=== PATIENT | female | born 1970 | race African-American/Black ===

== ENCOUNTER → 2016-12-09 | Outpatient (CLI) | payer MEDICARE, BC, MEDICAID ==
[2016-12-09 12:35] LABS: APPEARANCE,URINE CLEAR; BILIRUBIN,URINE NEGATIVE (NEGATIVE); GLUCOSE, URINE NEGATIVE (NEGATIVE); KETONES,URINE NEGATIVE (NEGATIVE); LEUKOCYTE ESTERASE,URINE NEGATIVE (NEGATIVE); NITRITE,URINE NEGATIVE (NEGATIVE); PROTEIN,URINE NEGATIVE (NEGATIVE); URINE SPECIFIC GRAVITY 1.027; UROBILINOGEN,URINE NEGATIVE mg/dL (<2.0)
[2016-12-09 12:51] LABS: HEMATOCRIT 35.5 % (36.0-47.0); HEMOGLOBIN 11.3 g/dL (12.0-15.5); HGB HCT DIFFERENCE -1.6; MEAN CORPUSCULAR HEMOGLOBIN 28.8 pg (27.0-33.4); MEAN CORPUSCULAR HGB CONC 31.9 g/dL (32.0-36.0); MEAN CORPUSCULAR VOLUME 90 fl (80-97); RED BLOOD COUNT 3.94 10^6/uL (3.72-5.28); RED CELL DISTRIBUTION WIDTH 13.6 % (11.5-14.0); WHITE BLOOD COUNT 3.8 10^3/uL (4.0-10.5)
[2016-12-09 13:25] LABS: AMYLASE 45 U/L (30-110); ANION GAP 11 (5-19); BLOOD UREA NITROGEN 27 mg/dL (7-20); CALCIUM 9.4 mg/dL (8.4-10.2); CARBON DIOXIDE 27 mmol/L (22-30); CHLORIDE 104 mmol/L (98-107); CREATININE RESULT 1.01 mg/dL (0.52-1.25); GLUCOSE 94 mg/dL (75-110); LIPASE 65.9 U/L (23-300); POTASSIUM 4.7 mmol/L (3.6-5.0)
[2016-12-10 11:40] LABS: CREATININE URINE 127.2 mg/dL (Not Estab.)
[2016-12-11 07:15] LABS: TACROLIMUS (FK506) 7.6 ng/mL (2.0-20.0)
[2016-12-12 10:17] LABS: CMV DNA PCR QUANT Positive < 200 IU/mL (Negative)
[2016-12-12 10:18] LABS: BK PCR QNT Negative copies/mL (Negative)
== END ==
LOC: OD 10:55
PROVIDERS: ATTEND Internal Medicine
DX: Z94.0 Kidney transplant status (principal); Z94.83 Pancreas transplant status; Z51.81 Encounter for therapeutic drug level monitoring; Z79.899 Other long term (current) drug therapy; Z79.01 Long term (current) use of anticoagulants
CPT/HCPCS: 36415; 80048; 80197; 81001; 82150; 82570; 83690; 84156; 85027; 87496; 87799

== ENCOUNTER → 2016-12-23 | Outpatient (CLI) | payer MEDICARE, BC, MEDICAID ==
[2016-12-23 10:55] LABS: HEMOGLOBIN 11.5 g/dL (12.0-15.5); HGB HCT DIFFERENCE -0.5; MEAN CORPUSCULAR HEMOGLOBIN 29.2 pg (27.0-33.4); MEAN CORPUSCULAR HGB CONC 32.8 g/dL (32.0-36.0); MEAN CORPUSCULAR VOLUME 89 fl (80-97); RED BLOOD COUNT 3.94 10^6/uL (3.72-5.28); RED CELL DISTRIBUTION WIDTH 13.1 % (11.5-14.0); WHITE BLOOD COUNT 2.8 10^3/uL (4.0-10.5)
[2016-12-23 11:21] LABS: AMYLASE 54 U/L (30-110); ANION GAP 10 (5-19); BLOOD UREA NITROGEN 26 mg/dL (7-20); CALCIUM 9.8 mg/dL (8.4-10.2); CARBON DIOXIDE 28 mmol/L (22-30); CHLORIDE 103 mmol/L (98-107); CREATININE RESULT 1.08 mg/dL (0.52-1.25); GLUCOSE 97 mg/dL (75-110); LIPASE 87.4 U/L (23-300); POTASSIUM 4.7 mmol/L (3.6-5.0); SODIUM 141.3 mmol/L (137-145)
[2016-12-23 11:34] LABS: APPEARANCE,URINE CLEAR; BILIRUBIN,URINE NEGATIVE (NEGATIVE); GLUCOSE, URINE NEGATIVE (NEGATIVE); KETONES,URINE NEGATIVE (NEGATIVE); LEUKOCYTE ESTERASE,URINE NEGATIVE (NEGATIVE); NITRITE,URINE NEGATIVE (NEGATIVE); PROTEIN,URINE NEGATIVE (NEGATIVE); URINE SPECIFIC GRAVITY 1.028; UROBILINOGEN,URINE NEGATIVE mg/dL (<2.0)
[2016-12-24 13:38] LABS: CREATININE URINE 152.3 mg/dL (Not Estab.)
[2016-12-26 07:58] LABS: CMV DNA PCR QUANT Positive < 200 IU/mL (Negative)
[2016-12-27 07:43] LABS: BK PCR QNT Negative copies/mL (Negative)
== END ==
LOC: OD 09:38
PROVIDERS: ATTEND Internal Medicine
DX: Z94.0 Kidney transplant status (principal); Z94.83 Pancreas transplant status; Z51.81 Encounter for therapeutic drug level monitoring; Z79.899 Other long term (current) drug therapy; N39.0 Urinary tract infection, site not specified; B25.9 Cytomegaloviral disease, unspecified
CPT/HCPCS: 36415; 80048; 80197; 81001; 82150; 82570; 83690; 84156; 85027; 87496; 87799

== ENCOUNTER → 2017-01-14 | Outpatient (CLI) | payer MEDICARE, BC, MEDICAID ==
[2017-01-14 11:33] LABS: HEMATOCRIT 35.1 % (36.0-47.0); HEMOGLOBIN 11.2 g/dL (12.0-15.5); HGB HCT DIFFERENCE -1.5; MEAN CORPUSCULAR VOLUME 88 fl (80-97); RED BLOOD COUNT 4.02 10^6/uL (3.72-5.28); RED CELL DISTRIBUTION WIDTH 13.3 % (11.5-14.0); WHITE BLOOD COUNT 3.8 10^3/uL (4.0-10.5)
[2017-01-14 12:00] LABS: AMYLASE 49 U/L (30-110); ANION GAP 10 (5-19); BLOOD UREA NITROGEN 22 mg/dL (7-20); CALCIUM 9.7 mg/dL (8.4-10.2); CARBON DIOXIDE 27 mmol/L (22-30); CHLORIDE 105 mmol/L (98-107); CREATININE RESULT 1.27 mg/dL (0.52-1.25); GLUCOSE 98 mg/dL (75-110); LIPASE 74.3 U/L (23-300); SODIUM 142.1 mmol/L (137-145)
[2017-01-14 12:04] LABS: APPEARANCE,URINE CLEAR; BILIRUBIN,URINE NEGATIVE (NEGATIVE); GLUCOSE, URINE NEGATIVE (NEGATIVE); KETONES,URINE NEGATIVE (NEGATIVE); LEUKOCYTE ESTERASE,URINE NEGATIVE (NEGATIVE); NITRITE,URINE NEGATIVE (NEGATIVE); PROTEIN,URINE NEGATIVE (NEGATIVE); URINE SPECIFIC GRAVITY 1.031; UROBILINOGEN,URINE NEGATIVE mg/dL (<2.0)
[2017-01-15 11:40] LABS: CREATININE URINE 282.5 mg/dL (Not Estab.)
[2017-01-16 07:29] LABS: TACROLIMUS (FK506) 8.8 ng/mL (2.0-20.0)
[2017-01-17 13:28] LABS: BK PCR QNT Negative copies/mL (Negative); CMV DNA PCR QUANT Positive < 200 IU/mL (Negative)
== END ==
LOC: OD 10:15
PROVIDERS: ATTEND Internal Medicine
DX: Z94.0 Kidney transplant status (principal); Z94.83 Pancreas transplant status; Z51.81 Encounter for therapeutic drug level monitoring; Z79.899 Other long term (current) drug therapy
CPT/HCPCS: 36415; 80048; 80197; 81001; 82150; 82570; 83690; 84156; 85027; 87496; 87799

== ENCOUNTER → 2017-01-23 | Outpatient (CLI) | payer MEDICARE, BC, MEDICAID ==
[2017-01-23 10:30] LABS: HEMATOCRIT 35.2 % (36.0-47.0); HEMOGLOBIN 11.1 g/dL (12.0-15.5); HGB HCT DIFFERENCE -1.9; MEAN CORPUSCULAR HEMOGLOBIN 27.7 pg (27.0-33.4); MEAN CORPUSCULAR HGB CONC 31.7 g/dL (32.0-36.0); MEAN CORPUSCULAR VOLUME 87 fl (80-97); RED BLOOD COUNT 4.03 10^6/uL (3.72-5.28); WHITE BLOOD COUNT 3.3 10^3/uL (4.0-10.5)
[2017-01-23 10:40] LABS: APPEARANCE,URINE CLEAR; BILIRUBIN,URINE NEGATIVE (NEGATIVE); GLUCOSE, URINE NEGATIVE (NEGATIVE); KETONES,URINE NEGATIVE (NEGATIVE); LEUKOCYTE ESTERASE,URINE NEGATIVE (NEGATIVE); NITRITE,URINE NEGATIVE (NEGATIVE); PROTEIN,URINE NEGATIVE (NEGATIVE); URINE SPECIFIC GRAVITY 1.028; UROBILINOGEN,URINE NEGATIVE mg/dL (<2.0)
[2017-01-23 10:47] LABS: URINE CREATININE 165.7 mg/dL (15-278); URINE PROTEIN 6.8 mg/dL (<12)
[2017-01-23 11:03] LABS: AMYLASE 48 U/L (30-110); ANION GAP 13 (5-19); BLOOD UREA NITROGEN 28 mg/dL (7-20); CALCIUM 9.6 mg/dL (8.4-10.2); CARBON DIOXIDE 26 mmol/L (22-30); CHLORIDE 104 mmol/L (98-107); CREATININE RESULT 1.17 mg/dL (0.52-1.25); GLUCOSE 93 mg/dL (75-110); LIPASE 101.1 U/L (23-300); SODIUM 142.6 mmol/L (137-145)
[2017-01-25 13:32] LABS: TACROLIMUS (FK506) 4.9 ng/mL (2.0-20.0)
[2017-01-27 07:20] LABS: BK PCR QNT Negative copies/mL (Negative); CMV DNA PCR QUANT Positive < 200 IU/mL (Negative)
== END ==
LOC: OD 09:21
PROVIDERS: ATTEND Internal Medicine
DX: Z94.0 Kidney transplant status (principal); Z94.83 Pancreas transplant status; Z51.81 Encounter for therapeutic drug level monitoring; Z79.899 Other long term (current) drug therapy
CPT/HCPCS: 36415; 80048; 80197; 81001; 82150; 82570; 83690; 84156; 85027; 87496; 87799

== ENCOUNTER → 2017-02-13 | Outpatient (CLI) | payer MEDICARE, BC, MEDICAID ==
[2017-02-13 11:29] LABS: HEMATOCRIT 35.9 % (36.0-47.0); HEMOGLOBIN 11.4 g/dL (12.0-15.5); HGB HCT DIFFERENCE -1.7; MEAN CORPUSCULAR HEMOGLOBIN 27.7 pg (27.0-33.4); MEAN CORPUSCULAR HGB CONC 31.6 g/dL (32.0-36.0); MEAN CORPUSCULAR VOLUME 88 fl (80-97); RED CELL DISTRIBUTION WIDTH 14.1 % (11.5-14.0); WHITE BLOOD COUNT 3.3 10^3/uL (4.0-10.5)
[2017-02-13 11:31] LABS: APPEARANCE,URINE CLEAR; BILIRUBIN,URINE NEGATIVE (NEGATIVE); GLUCOSE, URINE NEGATIVE (NEGATIVE); KETONES,URINE NEGATIVE (NEGATIVE); LEUKOCYTE ESTERASE,URINE NEGATIVE (NEGATIVE); NITRITE,URINE NEGATIVE (NEGATIVE); PROTEIN,URINE NEGATIVE (NEGATIVE); URINE SPECIFIC GRAVITY 1.025; UROBILINOGEN,URINE NEGATIVE mg/dL (<2.0)
[2017-02-13 11:39] LABS: URINE CREATININE 150.3 mg/dL (15-278); URINE PROTEIN 6.8 mg/dL (<12)
[2017-02-13 12:04] LABS: AMYLASE 56 U/L (30-110); ANION GAP 8 (5-19); BLOOD UREA NITROGEN 28 mg/dL (7-20); CALCIUM 9.5 mg/dL (8.4-10.2); CARBON DIOXIDE 28 mmol/L (22-30); CHLORIDE 103 mmol/L (98-107); CREATININE RESULT 1.19 mg/dL (0.52-1.25); GLUCOSE 93 mg/dL (75-110); POTASSIUM 4.8 mmol/L (3.6-5.0); SODIUM 138.7 mmol/L (137-145)
[2017-02-16 14:42] LABS: BK PCR QNT Negative copies/mL (Negative); CMV DNA PCR QUANT Positive < 200 IU/mL (Negative)
== END ==
LOC: OD 10:16
PROVIDERS: ATTEND Internal Medicine
DX: Z94.0 Kidney transplant status (principal); Z94.83 Pancreas transplant status; Z51.81 Encounter for therapeutic drug level monitoring; Z79.899 Other long term (current) drug therapy
CPT/HCPCS: 36415; 80048; 80197; 81001; 82150; 82570; 83690; 84156; 85027; 87496; 87799

== ENCOUNTER → 2017-02-20 | Outpatient (CLI) | payer MEDICARE, BC, MEDICAID ==
--- NOTE | 2017-02-21 07:59 | WOMENS IMAGING REPORT ---
EXAM DESCRIPTION: BILAT SCREENING MAMMO W/CAD COMPLETED DATE/TIME: 02/20/2017 2:30 pm REASON FOR STUDY: Z12.31 ROUTINE MAMMO Z12.31 ENCNTR SCREEN MAMMOGRAM FOR MALIGNANT NEOPLASM OF YONATHAN COMPARISON: Multiple since 2011 TECHNIQUE: Standard craniocaudal and mediolateral oblique views of each breast recorded using [employer] Innov[employer] Therapies[employer] l acquisition. LIMITATIONS: None. FINDINGS: No masses, calcifications or architectural distortion. No areas of suspicion. Read with the assistance of CAD. .[facility] - R2 Cenova Version 1.3 .[facility] Imaging - R2 Cenova Version 1.3 .[facility] Imaging - R2 Cenova Version 2.4 .[facility] - R2 Cenova Version 2.4 .[facility] - R2 Sporting Goods Sales Manager Version 9.2 IMPRESSION: NORMAL MAMMOGRAM. BIRADS 1. BREAST DENSITY: b. There are scattered areas of fibroglandular density. BIRAD: 1 NEGATIVE RECOMMENDATION: ROUTINE SCREENING COMMENT: The patient has been notified of the results by letter per SA requirements. Additional no tification policies are in place for contacting patient with suspicious or incomplete findings. Quality ID #[id number]: The [employer] recommends an annual screening mammogram for women aged 40 years or over. This facility utilizes a reminder system to ensure that all patients receive reminder letters, and/or direct phone calls for appointments. This includes reminders for routine scr eening mammograms, diagnostic mammograms, or other Breast Imaging Interventions when appropriate. Th is patient will be placed in the appropriate reminder system. The [employer] (ACR) has developed recommendations for screening MRI of the breast s in certain patient populations, to be used in conjunction with mammography. Breast MRI surveillanc e may be appropriate for women with more than 20% lifetime risk of developing breast cancer as deter mined by genetic testing, significant family history of the disease, or history of mantle radiation f or Hodgkins Disease. ACR Practice Guidelines 2008. TECHNICAL DOCUMENTATION: FINDING NUMBER: (1) ASSESSMENT: (1) JOB ID: [id number] [email or web address]- All Rights Reserved
== END ==
LOC: WI 14:01
PROVIDERS: ATTEND Obstetrics & Gynecology Gynecology
DX: Z12.31 Encounter for screening mammogram for malignant neoplasm of breast (principal)
CPT/HCPCS: 77067; G0202

== ENCOUNTER → 2017-02-28 | Outpatient (CLI) | payer MEDICARE, BC, MEDICAID ==
[2017-02-28 11:29] LABS: HEMATOCRIT 37.6 % (36.0-47.0); HGB HCT DIFFERENCE -1.6; MEAN CORPUSCULAR HEMOGLOBIN 28.1 pg (27.0-33.4); MEAN CORPUSCULAR HGB CONC 31.9 g/dL (32.0-36.0); MEAN CORPUSCULAR VOLUME 88 fl (80-97); RED BLOOD COUNT 4.27 10^6/uL (3.72-5.28); RED CELL DISTRIBUTION WIDTH 14.2 % (11.5-14.0); WHITE BLOOD COUNT 3.9 10^3/uL (4.0-10.5)
[2017-02-28 11:59] LABS: AMYLASE 51 U/L (30-110); ANION GAP 11 (5-19); BLOOD UREA NITROGEN 28 mg/dL (7-20); CALCIUM 9.6 mg/dL (8.4-10.2); CARBON DIOXIDE 26 mmol/L (22-30); CHLORIDE 103 mmol/L (98-107); CREATININE RESULT 1.18 mg/dL (0.52-1.25); GLUCOSE 82 mg/dL (75-110); LIPASE 79.7 U/L (23-300); POTASSIUM 5.2 mmol/L (3.6-5.0); SODIUM 139.5 mmol/L (137-145)
[2017-02-28 12:46] LABS: APPEARANCE,URINE CLEAR; BILIRUBIN,URINE NEGATIVE (NEGATIVE); GLUCOSE, URINE NEGATIVE (NEGATIVE)
[2017-02-28 12:47] LABS: KETONES,URINE NEGATIVE (NEGATIVE); LEUKOCYTE ESTERASE,URINE NEGATIVE (NEGATIVE); NITRITE,URINE NEGATIVE (NEGATIVE); PROTEIN,URINE NEGATIVE (NEGATIVE); RBC,URINE NONE SEEN /HPF; URINE SPECIFIC GRAVITY 1.027; UROBILINOGEN,URINE NEGATIVE mg/dL (<2.0); WBC,URINE 0-1 /HPF
[2017-02-28 15:07] LABS: URINE CREATININE 206.7 mg/dL (15-278); URINE PROTEIN 5.8 mg/dL (<12)
[2017-03-04 08:01] LABS: TACROLIMUS (FK506) 7.4 ng/mL (2.0-20.0)
[2017-03-05 11:12] LABS: BK PCR QNT 250 copies/mL (Negative)
[2017-03-05 11:50] LABS: CMV DNA PCR QUANT Positive < 200 IU/mL (Negative)
== END ==
LOC: OD 10:18
PROVIDERS: ATTEND Internal Medicine
DX: Z51.81 Encounter for therapeutic drug level monitoring (principal); Z94.0 Kidney transplant status; Z94.83 Pancreas transplant status; B25.9 Cytomegaloviral disease, unspecified; B34.9 Viral infection, unspecified
CPT/HCPCS: 36415; 80048; 80197; 81001; 82150; 82570; 83690; 84156; 85027; 87496; 87799

== ENCOUNTER → 2017-03-14 | Outpatient (CLI) | payer MEDICARE, BC, MEDICAID ==
[2017-03-14 10:53] LABS: APPEARANCE,URINE SLIGHTLY-CLOUDY; BILIRUBIN,URINE NEGATIVE (NEGATIVE); GLUCOSE, URINE NEGATIVE (NEGATIVE); KETONES,URINE NEGATIVE (NEGATIVE); LEUKOCYTE ESTERASE,URINE NEGATIVE (NEGATIVE); NITRITE,URINE NEGATIVE (NEGATIVE); PROTEIN,URINE NEGATIVE (NEGATIVE); URINE SPECIFIC GRAVITY 1.032; UROBILINOGEN,URINE NEGATIVE mg/dL (<2.0)
[2017-03-14 10:54] LABS: HEMATOCRIT 36.6 % (36.0-47.0); HEMOGLOBIN 11.5 g/dL (12.0-15.5); HGB HCT DIFFERENCE -2.1; MEAN CORPUSCULAR HEMOGLOBIN 27.7 pg (27.0-33.4); MEAN CORPUSCULAR HGB CONC 31.5 g/dL (32.0-36.0); MEAN CORPUSCULAR VOLUME 88 fl (80-97); RED BLOOD COUNT 4.17 10^6/uL (3.72-5.28); WHITE BLOOD COUNT 3.7 10^3/uL (4.0-10.5)
[2017-03-14 11:20] LABS: AMYLASE 61 U/L (30-110); ANION GAP 8 (5-19); BLOOD UREA NITROGEN 29 mg/dL (7-20); CALCIUM 9.5 mg/dL (8.4-10.2); CARBON DIOXIDE 28 mmol/L (22-30); CHLORIDE 104 mmol/L (98-107); CREATININE RESULT 1.18 mg/dL (0.52-1.25); GLUCOSE 93 mg/dL (75-110); LIPASE 96.5 U/L (23-300); POTASSIUM 4.9 mmol/L (3.6-5.0); SODIUM 140.4 mmol/L (137-145)
[2017-03-14 11:38] LABS: URINE CREATININE 231.1 mg/dL (15-278); URINE PROTEIN 7.5 mg/dL (<12)
[2017-03-17 07:06] LABS: TACROLIMUS (FK506) 6.8 ng/mL (2.0-20.0)
[2017-03-19 07:05] LABS: BK PCR QNT Negative copies/mL (Negative); CMV DNA PCR QUANT Positive < 200 IU/mL (Negative)
== END ==
LOC: OD 09:46
PROVIDERS: ATTEND Internal Medicine
DX: Z94.0 Kidney transplant status (principal); Z94.83 Pancreas transplant status; Z51.81 Encounter for therapeutic drug level monitoring; Z79.899 Other long term (current) drug therapy
CPT/HCPCS: 36415; 80048; 80197; 81001; 82150; 82570; 83690; 84156; 85027; 87496; 87799

== ENCOUNTER → 2017-04-08 | Outpatient (CLI) | payer MEDICARE, BC, MEDICAID ==
[2017-04-08 12:10] LABS: HEMATOCRIT 38.8 % (36.0-47.0); HEMOGLOBIN 12.2 g/dL (12.0-15.5); HGB HCT DIFFERENCE -2.2; MEAN CORPUSCULAR HEMOGLOBIN 27.7 pg (27.0-33.4); MEAN CORPUSCULAR HGB CONC 31.4 g/dL (32.0-36.0); MEAN CORPUSCULAR VOLUME 88 fl (80-97); RED BLOOD COUNT 4.39 10^6/uL (3.72-5.28); RED CELL DISTRIBUTION WIDTH 14.2 % (11.5-14.0); WHITE BLOOD COUNT 3.6 10^3/uL (4.0-10.5)
[2017-04-08 12:25] LABS: AMYLASE 62 U/L (30-110); ANION GAP 9 (5-19); BLOOD UREA NITROGEN 23 mg/dL (7-20); CALCIUM 9.8 mg/dL (8.4-10.2); CARBON DIOXIDE 29 mmol/L (22-30); CHLORIDE 103 mmol/L (98-107); CREATININE RESULT 1.08 mg/dL (0.52-1.25); GLUCOSE 96 mg/dL (75-110); LIPASE 75.2 U/L (23-300); SODIUM 140.6 mmol/L (137-145)
[2017-04-08 12:26] LABS: AMORPHOUS SEDIMENT,URINE TRACE /HPF; APPEARANCE,URINE CLOUDY; BILIRUBIN,URINE NEGATIVE (NEGATIVE); GLUCOSE, URINE NEGATIVE (NEGATIVE); KETONES,URINE NEGATIVE (NEGATIVE); LEUKOCYTE ESTERASE,URINE NEGATIVE (NEGATIVE); NITRITE,URINE NEGATIVE (NEGATIVE); PROTEIN,URINE NEGATIVE (NEGATIVE); URINE SPECIFIC GRAVITY 1.023; UROBILINOGEN,URINE NEGATIVE mg/dL (<2.0)
[2017-04-08 12:49] LABS: URINE CREATININE 165.7 mg/dL (15-278); URINE PROTEIN 7.4 mg/dL (<12)
[2017-04-10 07:13] LABS: TACROLIMUS (FK506) 7.1 ng/mL (2.0-20.0)
[2017-04-11 13:03] LABS: CMV DNA PCR QUANT Negative (Negative)
[2017-04-12 07:34] LABS: BK PCR QNT Negative copies/mL (Negative)
== END ==
LOC: OD 10:43
PROVIDERS: ATTEND Internal Medicine
DX: Z94.0 Kidney transplant status (principal); Z94.83 Pancreas transplant status; Z51.81 Encounter for therapeutic drug level monitoring; Z79.899 Other long term (current) drug therapy
CPT/HCPCS: 36415; 80048; 80197; 81001; 82150; 82570; 83690; 84156; 85027; 87496; 87799

== ENCOUNTER → 2017-04-24 | Outpatient (CLI) | payer MEDICARE, BC, MEDICAID ==
[2017-04-24 11:52] LABS: HEMATOCRIT 35.4 % (36.0-47.0); HEMOGLOBIN 11.4 g/dL (12.0-15.5); HGB HCT DIFFERENCE -1.2; MEAN CORPUSCULAR HEMOGLOBIN 28.9 pg (27.0-33.4); MEAN CORPUSCULAR HGB CONC 32.3 g/dL (32.0-36.0); MEAN CORPUSCULAR VOLUME 90 fl (80-97); RED BLOOD COUNT 3.95 10^6/uL (3.72-5.28); RED CELL DISTRIBUTION WIDTH 14.1 % (11.5-14.0); WHITE BLOOD COUNT 3.5 10^3/uL (4.0-10.5)
[2017-04-24 11:57] LABS: APPEARANCE,URINE CLEAR; BILIRUBIN,URINE NEGATIVE (NEGATIVE); GLUCOSE, URINE NEGATIVE (NEGATIVE); KETONES,URINE NEGATIVE (NEGATIVE); LEUKOCYTE ESTERASE,URINE NEGATIVE (NEGATIVE); NITRITE,URINE NEGATIVE (NEGATIVE); PROTEIN,URINE NEGATIVE (NEGATIVE); URINE SPECIFIC GRAVITY 1.027; UROBILINOGEN,URINE NEGATIVE mg/dL (<2.0)
[2017-04-24 12:07] LABS: AMYLASE 55 U/L (30-110); ANION GAP 9 (5-19); BLOOD UREA NITROGEN 25 mg/dL (7-20); CALCIUM 9.2 mg/dL (8.4-10.2); CARBON DIOXIDE 27 mmol/L (22-30); CHLORIDE 104 mmol/L (98-107); CREATININE RESULT 1.19 mg/dL (0.52-1.25); GLUCOSE 101 mg/dL (75-110); LIPASE 98.9 U/L (23-300); POTASSIUM 4.8 mmol/L (3.6-5.0); SODIUM 140.2 mmol/L (137-145)
[2017-04-24 12:18] LABS: URINE CREATININE 192.5 mg/dL (15-278); URINE PROTEIN 6.2 mg/dL (<12)
[2017-04-26 10:49] LABS: TACROLIMUS (FK506) 6.9 ng/mL (2.0-20.0)
[2017-04-28 14:50] LABS: BK PCR QNT Negative copies/mL (Negative)
[2017-04-29 07:02] LABS: CMV DNA PCR QUANT Negative (Negative)
== END ==
LOC: OD 11:00
PROVIDERS: ATTEND Internal Medicine
DX: Z94.0 Kidney transplant status (principal); Z94.83 Pancreas transplant status; Z51.81 Encounter for therapeutic drug level monitoring; B25.9 Cytomegaloviral disease, unspecified; B34.9 Viral infection, unspecified
CPT/HCPCS: 36415; 80048; 80197; 81001; 82150; 82570; 83690; 84156; 85027; 87496; 87799

== ENCOUNTER → 2017-05-08 | Outpatient (CLI) | payer MEDICARE, BC, MEDICAID ==
[2017-05-08 12:01] LABS: HEMATOCRIT 37.4 % (36.0-47.0); HEMOGLOBIN 12.2 g/dL (12.0-15.5); HGB HCT DIFFERENCE -0.8; MEAN CORPUSCULAR HEMOGLOBIN 28.6 pg (27.0-33.4); MEAN CORPUSCULAR HGB CONC 32.5 g/dL (32.0-36.0); MEAN CORPUSCULAR VOLUME 88 fl (80-97); RED BLOOD COUNT 4.25 10^6/uL (3.72-5.28); RED CELL DISTRIBUTION WIDTH 14.2 % (11.5-14.0); WHITE BLOOD COUNT 3.1 10^3/uL (4.0-10.5)
[2017-05-08 12:02] LABS: APPEARANCE,URINE CLEAR; BILIRUBIN,URINE NEGATIVE (NEGATIVE); GLUCOSE, URINE NEGATIVE (NEGATIVE); KETONES,URINE NEGATIVE (NEGATIVE); LEUKOCYTE ESTERASE,URINE TRACE (NEGATIVE); NITRITE,URINE NEGATIVE (NEGATIVE); PROTEIN,URINE NEGATIVE (NEGATIVE); URINE SPECIFIC GRAVITY 1.019; UROBILINOGEN,URINE NEGATIVE mg/dL (<2.0)
[2017-05-08 12:26] LABS: AMYLASE 67 U/L (30-110); ANION GAP 8 (5-19); BLOOD UREA NITROGEN 18 mg/dL (7-20); CALCIUM 9.7 mg/dL (8.4-10.2); CARBON DIOXIDE 29 mmol/L (22-30); CHLORIDE 103 mmol/L (98-107); CREATININE RESULT 1.22 mg/dL (0.52-1.25); GLUCOSE 87 mg/dL (75-110); LIPASE 72.2 U/L (23-300); POTASSIUM 4.9 mmol/L (3.6-5.0); SODIUM 139.5 mmol/L (137-145)
[2017-05-08 12:47] LABS: URINE CREATININE 201.5 mg/dL (15-278); URINE PROTEIN 7.6 mg/dL (<12)
[2017-05-10 07:49] LABS: TACROLIMUS (FK506) 5.6 ng/mL (2.0-20.0)
[2017-05-13 12:51] LABS: BK PCR QNT Negative copies/mL (Negative); CMV DNA PCR QUANT Negative (Negative)
== END ==
LOC: OD 10:31
PROVIDERS: ATTEND Internal Medicine
DX: Z94.0 Kidney transplant status (principal); Z94.83 Pancreas transplant status; Z51.81 Encounter for therapeutic drug level monitoring; Z79.899 Other long term (current) drug therapy; B25.9 Cytomegaloviral disease, unspecified
CPT/HCPCS: 36415; 80048; 80197; 81001; 82150; 82570; 83690; 84156; 85027; 87496; 87799

== ENCOUNTER → 2017-06-03 | Outpatient (CLI) | payer MEDICARE, BC, MEDICAID ==
[2017-06-03 10:17] LABS: APPEARANCE,URINE CLEAR; BILIRUBIN,URINE NEGATIVE (NEGATIVE); GLUCOSE, URINE NEGATIVE (NEGATIVE); KETONES,URINE NEGATIVE (NEGATIVE); LEUKOCYTE ESTERASE,URINE NEGATIVE (NEGATIVE); NITRITE,URINE NEGATIVE (NEGATIVE); PROTEIN,URINE NEGATIVE (NEGATIVE); URINE SPECIFIC GRAVITY 1.021; UROBILINOGEN,URINE NEGATIVE mg/dL (<2.0)
[2017-06-03 10:31] LABS: HEMATOCRIT 37.6 % (36.0-47.0); HEMOGLOBIN 11.8 g/dL (12.0-15.5); HGB HCT DIFFERENCE -2.2; MEAN CORPUSCULAR HEMOGLOBIN 28.1 pg (27.0-33.4); MEAN CORPUSCULAR HGB CONC 31.5 g/dL (32.0-36.0); MEAN CORPUSCULAR VOLUME 89 fl (80-97); RED BLOOD COUNT 4.21 10^6/uL (3.72-5.28); RED CELL DISTRIBUTION WIDTH 13.7 % (11.5-14.0); WHITE BLOOD COUNT 3.3 10^3/uL (4.0-10.5)
[2017-06-03 10:35] LABS: URINE CREATININE 171.6 mg/dL (15-278); URINE PROTEIN 7.1 mg/dL (<12)
[2017-06-03 11:04] LABS: AMYLASE 56 U/L (30-110); ANION GAP 10 (5-19); BLOOD UREA NITROGEN 28 mg/dL (7-20); CARBON DIOXIDE 26 mmol/L (22-30); CHLORIDE 104 mmol/L (98-107); CREATININE RESULT 1.19 mg/dL (0.52-1.25); GLUCOSE 93 mg/dL (75-110); LIPASE 71.6 U/L (23-300); POTASSIUM 4.7 mmol/L (3.6-5.0)
[2017-06-04 15:52] LABS: TACROLIMUS (FK506) 5.8 ng/mL (2.0-20.0)
== END ==
LOC: OD 08:45
PROVIDERS: ATTEND Internal Medicine
DX: Z94.0 Kidney transplant status (principal); Z94.83 Pancreas transplant status; Z51.81 Encounter for therapeutic drug level monitoring; Z79.899 Other long term (current) drug therapy
CPT/HCPCS: 36415; 80048; 80197; 81001; 82150; 82570; 83690; 84156; 85027; 87496; 87799

== ENCOUNTER → 2017-06-23 | Outpatient (CLI) | payer MEDICARE, BC, MEDICAID ==
[2017-06-23 12:01] LABS: APPEARANCE,URINE CLEAR; BILIRUBIN,URINE NEGATIVE (NEGATIVE); GLUCOSE, URINE NEGATIVE (NEGATIVE); KETONES,URINE NEGATIVE (NEGATIVE); LEUKOCYTE ESTERASE,URINE NEGATIVE (NEGATIVE); NITRITE,URINE NEGATIVE (NEGATIVE); PROTEIN,URINE NEGATIVE (NEGATIVE); URINE SPECIFIC GRAVITY 1.021; UROBILINOGEN,URINE NEGATIVE mg/dL (<2.0)
[2017-06-23 12:02] LABS: HEMATOCRIT 35.9 % (36.0-47.0); HEMOGLOBIN 11.8 g/dL (12.0-15.5); HGB HCT DIFFERENCE -0.5; MEAN CORPUSCULAR HEMOGLOBIN 28.6 pg (27.0-33.4); MEAN CORPUSCULAR HGB CONC 32.8 g/dL (32.0-36.0); MEAN CORPUSCULAR VOLUME 87 fl (80-97); RED BLOOD COUNT 4.12 10^6/uL (3.72-5.28); RED CELL DISTRIBUTION WIDTH 13.5 % (11.5-14.0)
[2017-06-23 12:26] LABS: AMYLASE 51 U/L (30-110); ANION GAP 8 (5-19); BLOOD UREA NITROGEN 23 mg/dL (7-20); CARBON DIOXIDE 30 mmol/L (22-30); CHLORIDE 104 mmol/L (98-107); CREATININE RESULT 1.09 mg/dL (0.52-1.25); GLUCOSE 98 mg/dL (75-110); LIPASE 85.8 U/L (23-300); SODIUM 142.1 mmol/L (137-145)
[2017-06-23 12:30] LABS: URINE CREATININE 175.5 mg/dL (15-278); URINE PROTEIN 7.1 mg/dL (<12)
[2017-06-24 11:09] LABS: TACROLIMUS (FK506) 7.2 ng/mL (2.0-20.0)
[2017-06-26 08:10] LABS: BK PCR QNT Negative copies/mL (Negative); CMV DNA PCR QUANT Positive < 200 IU/mL (Negative)
== END ==
LOC: OD 10:22
PROVIDERS: ATTEND Internal Medicine
DX: Z94.0 Kidney transplant status (principal); Z94.83 Pancreas transplant status; Z51.81 Encounter for therapeutic drug level monitoring
CPT/HCPCS: 36415; 80048; 80197; 81001; 82150; 82570; 83690; 84156; 85027; 87496; 87799

== ENCOUNTER → 2017-07-07 | Outpatient (CLI) | payer MEDICARE, BC, MEDICAID ==
[2017-07-07 11:14] LABS: APPEARANCE,URINE CLEAR; BILIRUBIN,URINE NEGATIVE (NEGATIVE); GLUCOSE, URINE NEGATIVE (NEGATIVE); KETONES,URINE NEGATIVE (NEGATIVE); LEUKOCYTE ESTERASE,URINE NEGATIVE (NEGATIVE); NITRITE,URINE NEGATIVE (NEGATIVE); PROTEIN,URINE NEGATIVE (NEGATIVE); UROBILINOGEN,URINE NEGATIVE mg/dL (<2.0)
[2017-07-07 11:16] LABS: HEMATOCRIT 38.4 % (36.0-47.0); HEMOGLOBIN 12.4 g/dL (12.0-15.5); HGB HCT DIFFERENCE -1.2; MEAN CORPUSCULAR HGB CONC 32.3 g/dL (32.0-36.0); MEAN CORPUSCULAR VOLUME 87 fl (80-97); RED BLOOD COUNT 4.43 10^6/uL (3.72-5.28); WHITE BLOOD COUNT 2.9 10^3/uL (4.0-10.5)
[2017-07-07 11:39] LABS: URINE CREATININE 187.9 mg/dL (15-278); URINE PROTEIN 6.8 mg/dL (<12)
[2017-07-07 11:47] LABS: AMYLASE 51 U/L (30-110); ANION GAP 11 (5-19); BLOOD UREA NITROGEN 22 mg/dL (7-20); CALCIUM 9.8 mg/dL (8.4-10.2); CARBON DIOXIDE 29 mmol/L (22-30); CHLORIDE 103 mmol/L (98-107); CREATININE RESULT 1.14 mg/dL (0.52-1.25); GLUCOSE 91 mg/dL (75-110); LIPASE 74.2 U/L (23-300); POTASSIUM 4.6 mmol/L (3.6-5.0); SODIUM 142.8 mmol/L (137-145)
[2017-07-09 12:00] LABS: TACROLIMUS (FK506) 7.5 ng/mL (2.0-20.0)
[2017-07-10 07:23] LABS: BK PCR QNT Negative copies/mL (Negative); CMV DNA PCR QUANT Positive < 200 IU/mL (Negative)
== END ==
LOC: OD 09:45
PROVIDERS: ATTEND Internal Medicine
DX: Z94.0 Kidney transplant status (principal); Z94.83 Pancreas transplant status; Z51.81 Encounter for therapeutic drug level monitoring; Z79.899 Other long term (current) drug therapy
CPT/HCPCS: 36415; 80048; 80197; 81001; 82150; 82570; 83690; 84156; 85027; 87496; 87799

== ENCOUNTER → 2017-08-18 | Outpatient (CLI) | payer MEDICARE, BC, MEDICAID ==
[2017-08-18 11:13] LABS: APPEARANCE,URINE CLEAR; BILIRUBIN,URINE NEGATIVE (NEGATIVE); GLUCOSE, URINE NEGATIVE (NEGATIVE); KETONES,URINE NEGATIVE (NEGATIVE); LEUKOCYTE ESTERASE,URINE NEGATIVE (NEGATIVE); NITRITE,URINE NEGATIVE (NEGATIVE); PROTEIN,URINE NEGATIVE (NEGATIVE); URINE SPECIFIC GRAVITY 1.014; UROBILINOGEN,URINE NEGATIVE mg/dL (<2.0)
[2017-08-18 11:25] LABS: HEMATOCRIT 37.9 % (36.0-47.0); HEMOGLOBIN 12.2 g/dL (12.0-15.5); HGB HCT DIFFERENCE -1.3; MEAN CORPUSCULAR HEMOGLOBIN 27.7 pg (27.0-33.4); MEAN CORPUSCULAR HGB CONC 32.1 g/dL (32.0-36.0); MEAN CORPUSCULAR VOLUME 86 fl (80-97); RED BLOOD COUNT 4.39 10^6/uL (3.72-5.28); RED CELL DISTRIBUTION WIDTH 13.9 % (11.5-14.0)
[2017-08-18 11:42] LABS: URINE CREATININE 103.1 mg/dL (15-278); URINE PROTEIN 8.5 mg/dL (<12)
[2017-08-18 11:52] LABS: AMYLASE 50 U/L (30-110); ANION GAP 9 (5-19); BLOOD UREA NITROGEN 23 mg/dL (7-20); CALCIUM 9.6 mg/dL (8.4-10.2); CARBON DIOXIDE 29 mmol/L (22-30); CHLORIDE 103 mmol/L (98-107); CREATININE RESULT 1.08 mg/dL (0.52-1.25); GLUCOSE 104 mg/dL (75-110); LIPASE 68.8 U/L (23-300); POTASSIUM 4.6 mmol/L (3.6-5.0); SODIUM 141.4 mmol/L (137-145)
[2017-08-19 13:58] LABS: TACROLIMUS (FK506) 6.9 ng/mL (2.0-20.0)
[2017-08-19 14:59] LABS: BK PCR QNT Negative copies/mL (Negative); CMV DNA PCR QUANT Negative (Negative)
== END ==
LOC: OD 09:40
PROVIDERS: ATTEND Internal Medicine
DX: Z94.0 Kidney transplant status (principal); Z94.83 Pancreas transplant status; Z51.81 Encounter for therapeutic drug level monitoring
CPT/HCPCS: 36415; 80048; 80197; 81001; 82150; 82570; 83690; 84156; 85027; 87496; 87799

== ENCOUNTER → 2017-09-19 | Outpatient (CLI) | payer MEDICARE, MEDICAID ==
[2017-09-19 11:31] LABS: HEMATOCRIT 39.7 % (36.0-47.0); HEMOGLOBIN 12.5 g/dL (12.0-15.5); MEAN CORPUSCULAR HEMOGLOBIN 27.4 pg (27.0-33.4); MEAN CORPUSCULAR HGB CONC 31.5 g/dL (32.0-36.0); MEAN CORPUSCULAR VOLUME 87 fl (80-97); PLATELET COUNT 186 10^3/uL (150-450); RED BLOOD COUNT 4.57 10^6/uL (3.72-5.28); RED CELL DISTRIBUTION WIDTH 14.2 % (11.5-14.0); WHITE BLOOD COUNT 4.1 10^3/uL (4.0-10.5)
[2017-09-19 11:42] LABS: APPEARANCE,URINE CLEAR; BILIRUBIN,URINE NEGATIVE (NEGATIVE); COLOR,URINE YELLOW; GLUCOSE, URINE NEGATIVE (NEGATIVE); KETONES,URINE NEGATIVE (NEGATIVE); LEUKOCYTE ESTERASE,URINE NEGATIVE (NEGATIVE); NITRITE,URINE NEGATIVE (NEGATIVE); PROTEIN,URINE NEGATIVE (NEGATIVE); URINE SPECIFIC GRAVITY 1.017; UROBILINOGEN,URINE NEGATIVE mg/dL (<2.0)
[2017-09-19 11:56] LABS: UR PRO/CREAT RATIO RESULT 0.1 mg/mg (0.0-0.2); URINE CREATININE 122.4 mg/dL (15-278); URINE PROTEIN 6.7 mg/dL (<12)
[2017-09-19 12:01] LABS: AMYLASE 43 U/L (30-110); ANION GAP 9 (5-19); BLOOD UREA NITROGEN 29 mg/dL (7-20); CALCIUM 10.1 mg/dL (8.4-10.2); CARBON DIOXIDE 30 mmol/L (22-30); CHLORIDE 102 mmol/L (98-107); CHOLESTEROL 131.39 mg/dL (0-200); GLUCOSE 95 mg/dL (75-110); LIPASE 63.2 U/L (23-300); TRIGLYCERIDES 71 mg/dL (<150)
[2017-09-19 12:11] LABS: DIRECT LDL 42 mg/dL (<100)
[2017-09-21 06:38] LABS: TACROLIMUS (FK506) 8.6 ng/mL (2.0-20.0)
[2017-09-24 07:39] LABS: BK PCR QNT Negative copies/mL (Negative); CMV DNA PCR QUANT Negative (Negative)
== END ==
LOC: OD 10:32
PROVIDERS: ATTEND Internal Medicine
DX: Z94.0 Kidney transplant status (principal); Z94.83 Pancreas transplant status; Z51.81 Encounter for therapeutic drug level monitoring
CPT/HCPCS: 36415; 80048; 80061; 80197; 81001; 82150; 82570; 83690; 84156; 85027; 87496; 87799

== ENCOUNTER → 2017-10-16 | Outpatient (CLI) | payer MEDICARE, MEDICAID ==
[2017-10-16 11:42] LABS: APPEARANCE,URINE CLEAR; BILIRUBIN,URINE NEGATIVE (NEGATIVE); COLOR,URINE YELLOW; GLUCOSE, URINE NEGATIVE (NEGATIVE); KETONES,URINE NEGATIVE (NEGATIVE); LEUKOCYTE ESTERASE,URINE NEGATIVE (NEGATIVE); NITRITE,URINE NEGATIVE (NEGATIVE); PROTEIN,URINE NEGATIVE (NEGATIVE); URINE SPECIFIC GRAVITY 1.015; UROBILINOGEN,URINE NEGATIVE mg/dL (<2.0)
[2017-10-16 11:47] LABS: HEMATOCRIT 38.4 % (36.0-47.0); HEMOGLOBIN 12.2 g/dL (12.0-15.5); MEAN CORPUSCULAR HEMOGLOBIN 27.6 pg (27.0-33.4); MEAN CORPUSCULAR HGB CONC 31.9 g/dL (32.0-36.0); MEAN CORPUSCULAR VOLUME 87 fl (80-97); PLATELET COUNT 180 10^3/uL (150-450); RED BLOOD COUNT 4.43 10^6/uL (3.72-5.28); RED CELL DISTRIBUTION WIDTH 14.2 % (11.5-14.0)
[2017-10-16 12:06] LABS: AMYLASE 52 U/L (30-110); ANION GAP 8 (5-19); BLOOD UREA NITROGEN 27 mg/dL (7-20); CARBON DIOXIDE 31 mmol/L (22-30); CHLORIDE 102 mmol/L (98-107); GLUCOSE 90 mg/dL (75-110); LIPASE 65.1 U/L (23-300); POTASSIUM 4.9 mmol/L (3.6-5.0); SODIUM 141.1 mmol/L (137-145)
[2017-10-16 12:21] LABS: UR PRO/CREAT RATIO RESULT 0.1 mg/mg (0.0-0.2); URINE CREATININE 98.6 mg/dL (15-278); URINE PROTEIN 7.1 mg/dL (<12)
[2017-10-20 13:30] LABS: TACROLIMUS (FK506) 5.4 ng/mL (2.0-20.0)
[2017-10-21 14:50] LABS: CMV DNA PCR QUANT Negative (Negative)
== END ==
LOC: OD 10:12
PROVIDERS: ATTEND Internal Medicine
DX: Z51.81 Encounter for therapeutic drug level monitoring (principal); Z94.0 Kidney transplant status; Z94.83 Pancreas transplant status; Z79.899 Other long term (current) drug therapy
CPT/HCPCS: 36415; 80048; 80197; 81001; 82150; 82570; 83690; 84156; 85027; 87496; 87799

== ENCOUNTER → 2017-11-10 | Outpatient (CLI) | payer MEDICARE, MEDICAID ==
[2017-11-10 12:51] LABS: HEMATOCRIT 38.8 % (36.0-47.0); HEMOGLOBIN 12.5 g/dL (12.0-15.5); MEAN CORPUSCULAR HEMOGLOBIN 27.8 pg (27.0-33.4); MEAN CORPUSCULAR HGB CONC 32.3 g/dL (32.0-36.0); MEAN CORPUSCULAR VOLUME 86 fl (80-97); PLATELET COUNT 183 10^3/uL (150-450); WHITE BLOOD COUNT 3.3 10^3/uL (4.0-10.5)
[2017-11-10 12:56] LABS: APPEARANCE,URINE CLEAR; BILIRUBIN,URINE NEGATIVE (NEGATIVE); COLOR,URINE YELLOW; GLUCOSE, URINE NEGATIVE (NEGATIVE); KETONES,URINE NEGATIVE (NEGATIVE); LEUKOCYTE ESTERASE,URINE NEGATIVE (NEGATIVE); NITRITE,URINE NEGATIVE (NEGATIVE); PROTEIN,URINE NEGATIVE (NEGATIVE); URINE SPECIFIC GRAVITY 1.015; UROBILINOGEN,URINE NEGATIVE mg/dL (<2.0)
[2017-11-10 13:11] LABS: AMYLASE 67 U/L (30-110); ANION GAP 11 (5-19); BLOOD UREA NITROGEN 29 mg/dL (7-20); CALCIUM 10.2 mg/dL (8.4-10.2); CARBON DIOXIDE 27 mmol/L (22-30); CHLORIDE 104 mmol/L (98-107); GLUCOSE 112 mg/dL (75-110); LIPASE 71.4 U/L (23-300); POTASSIUM 4.6 mmol/L (3.6-5.0); SODIUM 142.2 mmol/L (137-145)
[2017-11-10 13:17] LABS: UR PRO/CREAT RATIO RESULT 0.1 mg/mg (0.0-0.2); URINE CREATININE 102.5 mg/dL (15-278); URINE PROTEIN 7.3 mg/dL (<12)
[2017-11-11 15:10] LABS: BK PCR QNT Negative copies/mL (Negative); CMV DNA PCR QUANT Negative (Negative)
[2017-11-11 16:03] LABS: TACROLIMUS (FK506) 7.1 ng/mL (2.0-20.0)
== END ==
LOC: OD 11:36
PROVIDERS: ATTEND Internal Medicine Nephrology
DX: Z94.0 Kidney transplant status (principal); Z94.83 Pancreas transplant status; Z51.81 Encounter for therapeutic drug level monitoring; B25.9 Cytomegaloviral disease, unspecified; R19.7 Diarrhea, unspecified; Z79.899 Other long term (current) drug therapy
CPT/HCPCS: 36415; 80048; 80197; 81001; 82150; 82570; 83690; 84156; 85027; 87496; 87799

== ENCOUNTER → 2017-12-01 | Outpatient (CLI) | payer MEDICARE, MEDICAID ==
[2017-12-01 13:29] LABS: HEMATOCRIT 38.8 % (36.0-47.0); HEMOGLOBIN 12.5 g/dL (12.0-15.5); MEAN CORPUSCULAR HEMOGLOBIN 27.9 pg (27.0-33.4); MEAN CORPUSCULAR HGB CONC 32.2 g/dL (32.0-36.0); MEAN CORPUSCULAR VOLUME 87 fl (80-97); PLATELET COUNT 225 10^3/uL (150-450); RED BLOOD COUNT 4.49 10^6/uL (3.72-5.28); WHITE BLOOD COUNT 5.6 10^3/uL (4.0-10.5)
[2017-12-01 13:47] LABS: AMYLASE 46 U/L (30-110); ANION GAP 7 (5-19); BLOOD UREA NITROGEN 28 mg/dL (7-20); CALCIUM 9.6 mg/dL (8.4-10.2); CARBON DIOXIDE 29 mmol/L (22-30); CHLORIDE 105 mmol/L (98-107); GLUCOSE 111 mg/dL (75-110); LIPASE 58.1 U/L (23-300); POTASSIUM 4.8 mmol/L (3.6-5.0); SODIUM 141.2 mmol/L (137-145)
[2017-12-01 13:56] LABS: APPEARANCE,URINE CLEAR; BILIRUBIN,URINE NEGATIVE (NEGATIVE); COLOR,URINE YELLOW; GLUCOSE, URINE NEGATIVE (NEGATIVE); KETONES,URINE NEGATIVE (NEGATIVE); LEUKOCYTE ESTERASE,URINE NEGATIVE (NEGATIVE); NITRITE,URINE NEGATIVE (NEGATIVE); PROTEIN,URINE NEGATIVE (NEGATIVE); URINE SPECIFIC GRAVITY 1.021; UROBILINOGEN,URINE NEGATIVE mg/dL (<2.0)
[2017-12-01 14:15] LABS: UR PRO/CREAT RATIO RESULT 0.1 mg/mg (0.0-0.2); URINE CREATININE 105.9 mg/dL (15-278); URINE PROTEIN 6.7 mg/dL (<12)
[2017-12-03 07:07] LABS: BK PCR QNT Negative copies/mL (Negative); TACROLIMUS (FK506) 6.6 ng/mL (2.0-20.0)
[2017-12-03 14:49] LABS: CMV DNA PCR QUANT Negative (Negative)
== END ==
LOC: OD 11:58
PROVIDERS: ATTEND Internal Medicine Nephrology
DX: Z94.0 Kidney transplant status (principal); Z94.83 Pancreas transplant status; B25.9 Cytomegaloviral disease, unspecified; Z79.899 Other long term (current) drug therapy; R19.7 Diarrhea, unspecified
CPT/HCPCS: 36415; 80048; 80197; 81001; 82150; 82570; 83690; 84156; 85027; 87496; 87799

== ENCOUNTER → 2018-02-23 | Outpatient (CLI) | payer MEDICARE, MEDICAID ==
--- NOTE | 2018-02-23 16:57 | WOMENS IMAGING REPORT ---
EXAM DESCRIPTION: 3D SCREENING MAMMO BILAT COMPLETED DATE/TIME: 02/23/2018 9:43 am REASON FOR STUDY: ROUTINE SCREENING;Z12.31 Z12.31 ENCNTR SCREEN MAMMOGRAM FOR MALIGNANT NEOPLASM OF YONATHAN COMPARISON: 02/20/2017 and 09/06/2015. TECHNIQUE: Standard craniocaudal and mediolateral oblique views of each breast recorded using digita l acquisition and breast tomosynthesis. LIMITATIONS: None. FINDINGS: RIGHT BREAST MASSES: No suspicious masses. CALCIFICATIONS: No new or suspicious calcifications. ARCHITECTURAL DISTORTION: None. DEVELOPING DENSITY: None. ASYMMETRY: None noted. OTHER: No other significant findings. LEFT BREAST MASSES: No suspicious masses. CALCIFICATIONS: No new or suspicious calcifications. ARCHITECTURAL DISTORTION: None. DEVELOPING DENSITY: Possible developing density in the upper-outer breast, located 2 cm from the nipp le. ASYMMETRY: None noted. OTHER: No other significant findings. Read with the assistance of CAD. .[facility] - R2 Cenova Version 1.3 .[facility] Imaging - R2 Cenova Version 1.3 .[facility] Imaging - R2 Cenova Version 2.4 .[facility] - R2 Cenova Version 2.4 .[facility] - R2 Terrapin Fisher Version 9.2 IMPRESSION: Possible developing density in the upper-outer left breast. Stable mammographic appeara nce of the right breast. BREAST DENSITY: b. There are scattered areas of fibroglandular density. BIRAD: 0 Incomplete: Needs Additional Imaging Evaluation and/or prior Mammograms for Comparison. RECOMMENDATION: RECOMMENDED FOLLOW-UP: Recommend additional evaluation with compression breast tomos ynthesis views of the left breast and ultrasound of the left breast. Recommend routine screening graciela mography of the right breast. The patient will be contacted for additional imaging. COMMENT: The patient has been notified of the results by letter per SA requirements. Additional no tification policies are in place for contacting patient with suspicious or incomplete findings. Quality ID #[id number]: The [employer] recommends an annual screening mammogram for women aged 40 years or over. This facility utilizes a reminder system to ensure that all patients receive reminder letters, and/or direct phone calls for appointments. This includes reminders for routine scr eening mammograms, diagnostic mammograms, or other Breast Imaging Interventions when appropriate. Th is patient will be placed in the appropriate reminder system. The [employer] (ACR) has developed recommendations for screening MRI of the breast s in certain patient populations, to be used in conjunction with mammography. Breast MRI surveillanc e may be appropriate for women with more than 20% lifetime risk of developing breast cancer as deter mined by genetic testing, significant family history of the disease, or history of mantle radiation f or Hodgkins Disease. ACR Practice Guidelines 2008. DBT Technology DBT is a type of tomographic mammography. With conventional mammography, overlapping breast tissue ma y make lesions difficult to detect, even with good compression. DBT uses an x-ray tube that rotates a round the breast, taking images at different angles. These images are then combined to create thin sl ices of the breast that the radiologist can view as a 3D reconstruction. The Transfercar unit can perform full-field digital mammograms (2D imaging); or DBT (3D imaging); or both, in a combination mode that quickly performs both the mammogram and the tomosynthesis scan while the breast is still compressed. PQRS 6045F: Fluoroscopic imaging is not utilized for breast tomosynthesis. TECHNICAL DOCUMENTATION: FINDING NUMBER: (1) ASSESSMENT: (1) JOB ID: [id number] [employer]- All Rights Reserved Reading location - IP/workstation name: [email or web address]
== END ==
LOC: WI 09:21
PROVIDERS: ATTEND Obstetrics & Gynecology Gynecology
DX: Z12.31 Encounter for screening mammogram for malignant neoplasm of breast (principal); R92.2 Inconclusive mammogram
CPT/HCPCS: 77063; 77067

== ENCOUNTER → 2018-03-03 | Outpatient (CLI) | payer MEDICARE, MEDICAID ==
--- NOTE | 2018-03-04 08:15 | WOMENS IMAGING REPORT ---
EXAM DESCRIPTION: LEFT DIAGNOSTIC MAMMO W/CAD COMPLETED DATE/TIME: 03/03/2018 10:01 am REASON FOR STUDY: LEFT BREAST DENSITY N63.21 UNSPECIFIED LUMP IN THE LEFT BREAST, UPPER OUTER QUAD COMPARISON: Multiple since 2011 TECHNIQUE: Cone compression craniocaudal and mediolateral oblique images of the breast recorded with digital acquisition. LIMITATIONS: None. FINDINGS: BREAST: Left MASSES: No suspicious masses. CALCIFICATIONS: No new or suspicious calcifications. ARCHITECTURAL DISTORTION: None. DEVELOPING DENSITY: None. ASYMMETRY: None noted. OTHER: No other significant findings. Read with the assistance of CAD. .[facility] - R2 Cenova Version 1.3 .[facility] Imaging - R2 Cenova Version 1.3 .[facility] Imaging - R2 Cenova Version 2.4 .[facility] - R2 Cenova Version 2.4 .[facility] - R2 Communications Equipment Installer Version 9.2 IMPRESSION: No mammographic evidence for malignancy left breast BREAST DENSITY: b. There are scattered areas of fibroglandular density. BIRAD: 1 Negative. RECOMMENDATION: RECOMMENDED FOLLOW UP: Please continue yearly bilateral screening mammography/ tomos ynthesis in February 2019 SPECIFIC INTERVENTION/IMAGING/CONSULTATION RECOMMENDED:No additional intervention/ imaging/consultati on needed at this time. COMMUNICATION:Patient notified by letter COMMENT: The patient has been notified of the results by letter per MQSA requirements. Additional no tification policies are in place for contacting patient with suspicious or incomplete findings. Quality ID #[id number]: The [employer] recommends an annual screening mammogram for women aged 40 years or over. This facility utilizes a reminder system to ensure that all patients receive reminder letters, and/or direct phone calls for appointments. This includes reminders for routine scr eening mammograms, diagnostic mammograms, or other Breast Imaging Interventions when appropriate. Th is patient will be placed in the appropriate reminder system. The [employer] (ACR) has developed recommendations for screening MRI of the breast s in certain patient populations, to be used in conjunction with mammography. Breast MRI surveillanc e may be appropriate for women with more than 20% lifetime risk of developing breast cancer as deter mined by genetic testing, significant family history of the disease, or history of mantle radiation f or Hodgkins Disease. ACR Practice Guidelines 2008. TECHNICAL DOCUMENTATION: FINDING NUMBER: (1) ASSESSMENT: (1) JOB ID: [id number] [employer]- All Rights Reserved Reading location - IP/workstation name: [email or web address]
== END ==
LOC: WI 09:47
PROVIDERS: ATTEND Obstetrics & Gynecology Gynecology
DX: N63.21 Unspecified lump in the left breast, upper outer quadrant (principal)

== ENCOUNTER → 2018-10-27 | Outpatient (CLI) | payer MEDICARE, MEDICAID ==
[2018-10-27 12:05] LABS: HEMATOCRIT 37.8 % (36.0-47.0); HEMOGLOBIN 12.4 g/dL (12.0-15.5); MEAN CORPUSCULAR HEMOGLOBIN 28.5 pg (27.0-33.4); MEAN CORPUSCULAR HGB CONC 32.7 g/dL (32.0-36.0); MEAN CORPUSCULAR VOLUME 87 fl (80-97); PLATELET COUNT 158 10^3/uL (150-450); RED BLOOD COUNT 4.34 10^6/uL (3.72-5.28); RED CELL DISTRIBUTION WIDTH 13.8 % (11.5-14.0); WHITE BLOOD COUNT 3.5 10^3/uL (4.0-10.5)
[2018-10-27 12:06] LABS: APPEARANCE,URINE CLEAR; BILIRUBIN,URINE NEGATIVE (NEGATIVE); COLOR,URINE YELLOW; GLUCOSE, URINE NEGATIVE (NEGATIVE); KETONES,URINE NEGATIVE (NEGATIVE); LEUKOCYTE ESTERASE,URINE NEGATIVE (NEGATIVE); NITRITE,URINE NEGATIVE (NEGATIVE); PROTEIN,URINE NEGATIVE (NEGATIVE); URINE SPECIFIC GRAVITY 1.021
[2018-10-27 12:34] LABS: UR PRO/CREAT RATIO RESULT 0.1 mg/mg (0.0-0.2); URINE CREATININE 112.9 mg/dL (15-278); URINE PROTEIN 5.8 mg/dL (<12)
[2018-10-27 12:43] LABS: AMYLASE 55 U/L (30-110); ANION GAP 8 (5-19); BLOOD UREA NITROGEN 31 mg/dL (7-20); CALCIUM 9.4 mg/dL (8.4-10.2); CARBON DIOXIDE 27 mmol/L (22-30); CHLORIDE 106 mmol/L (98-107); GLUCOSE 121 mg/dL (75-110); LIPASE 60.2 U/L (23-300); SODIUM 141.4 mmol/L (137-145)
[2018-10-29 14:18] LABS: TACROLIMUS (FK506) 11.6 ng/mL (2.0-20.0)
[2018-10-30 12:44] LABS: CMV DNA PCR QUANT Negative (Negative)
[2018-11-01 06:17] LABS: BK PCR QNT Negative copies/mL (Negative)
== END ==
LOC: OD 10:49
PROVIDERS: ATTEND Internal Medicine Nephrology
DX: B25.9 Cytomegaloviral disease, unspecified (principal); Z94.83 Pancreas transplant status; Z94.0 Kidney transplant status; Z79.899 Other long term (current) drug therapy
CPT/HCPCS: 36415; 80048; 80197; 81001; 82150; 82570; 83690; 84156; 85027; 87496; 87799

== ENCOUNTER 2019-01-01 18:57 | Emergency (ER) | payer MEDICARE, MEDICAID ==
[2019-01-01 19:14] VITALS: BP 159/84
--- NOTE | 2019-01-01 19:31 | ER Document Report ---
HPI - HPI Time Seen by Provider: 01/01/19 19:22 Pain Level: 3 Notes: Patient is a 48-year-old female with a history of kidney and pancreas transplant 3 years ago who presents to the emergency department complaining of left lateral foot pain status post possible injury today. Patient states that she was walking when she felt a 'pop' in the lateral part of her foot. Patient states that she has been able to ablate, but is limping. She has noticed some mild swelling to the lateral foot since then. Patient states that she otherwise feels well. She has been eating and drinking without difficulty. She is urinating normally and having normal bowel movements. She has not noticed any other swelling to her legs bilaterally that is new for her. Her specialist is in [place]. Denies any headache, fever, URI, sore throat, chest pain, palpitations, syncope, cough, shortness of breath, wheeze, dyspnea, abdominal pain, nausea/vomiting/diarrhea, urinary retention, dysuria, hematuria, loss of control of bowel or bladder, numbness/tingling, muscle paralysis/weakness, or rash. - ROS Systems Reviewed and Negative: Yes All other systems reviewed and negative - REPRODUCTIVE Reproductive: DENIES: : - DERM Skin Color: Normal Past Medical History - Social History Smoking Status: Unknown if Ever Smoked Family History: Reviewed & Not Pertinent Patient has suicidal ideation: No Patient has homicidal ideation: No - Past Medical History Cardiac Medical History: Reports: Hx Hypertension - on meds Denies: Hx Coronary Artery Disease, Hx Heart Attack Pulmonary Medical History: Reports: Hx Tuberculosis - EXPOSURE AT WORK AND TREATED Denies: Hx Asthma, Hx Bronchitis, Hx COPD, Hx Pneumonia Neurological Medical History: Denies: Hx Cerebrovascular Accident, Hx Seizures Endocrine Medical History: Reports: Hx Diabetes Mellitus Type 1 Renal/ Medical History: Reports: Hx Kidney Stones. Denies: Hx Peritoneal Dialysis GI Medical History: Musculoskeletal Medical History: Reports Hx Arthritis Infectious Medical History: Past Surgical History: Reports: Hx Hysterectomy, Hx Tubal Ligation. Denies: Hx Appendectomy, Hx Bowel Surgery, Hx Section, Hx Cholecystectomy, Hx Mastectomy, Hx Open Heart Surgery, Hx Tonsillectomy - Immunizations Hx Diphtheria, Pertussis, Tetanus Vaccination: Yes Vertical Provider Document - CONSTITUTIONAL Agree With Documented VS: Yes Notes: PHYSICAL EXAMINATION: GENERAL: Well-appearing, well-nourished and in no acute distress. LUNGS: Breath sounds clear to auscultation bilaterally and equal. No wheezes rales or rhonchi. HEART: Regular rate and rhythm without murmurs, rubs, gallops. Musculoskeletal: Lt foot/ankle: FROM to passive/active. Strength 5+/5. N/V intact distal. + tenderness to the lateral approx 5th metatarsal and lateral plantar foot. No bony tenderness of the ankle of foot otherwise. Achilles intact. Extremities: trace pitting edema b/l LE's. Govind neg b/l and other asymmetry noted. PT/DP pulses 2+ b/l. Foot is warm. Capillary refill less than 3 seconds. NEUROLOGICAL: Normal speech, limping gait. Normal sensory, motor exams PSYCH: Normal mood, normal affect. SKIN: see above. - INFECTION CONTROL TRAVEL OUTSIDE OF THE [place] IN LAST 30 DAYS: No Course - Re-evaluation Re-evalutation: 01/01/19 Patient is an afebrile, well-hydrated, 48-year-old female who presents to the ED with a fracture to the left 5th metatarsal base. Vitals are acceptable without any significant tachycardia, tachypnea, or hypoxia. PE is otherwise unremarkable for any neurovascular compromise, obvious tendon/ligament rupture, open fracture, septic joint. See XR result. Splint applied today and crutches provided. Patient is nontoxic-appearing. No other labs or imaging warranted at this time based on H&P. Conservative measures otherwise for symptoms. Recheck with your PCM in 3-5 days. Call orthopedics Friday to schedule an appointment for further evaluation and management. Return to the ED with any worsen ing/concerning symptoms otherwise as reviewed in discharge. Patient is in agreement. - Vital Signs Vital signs: Temp Pulse Resp BP Pulse Ox 98.2 F 92 17 159/84 H 98 01/01/19 19:10 01/01/19 19:10 01/01/19 19:10 01/01/19 19:10 01/01/19 19:10 Procedures - Immobilization Left Foot Pre-Proc Neuro Vasc Exam: Normal Immobilizer type: Posterior ankle Performed by: PCT Post-Proc Neuro Vasc Exam: Normal, Unchanged from pre-exam Discharge - Discharge Clinical Impression: Nondisplaced fracture of fifth left metatarsal bone Qualifiers: Encounter type: initial encounter Fracture type: closed Qualified Code(s): S92.355A - Nondisplaced fracture of fifth metatarsal bone, left foot, initial encounter for closed fracture Condition: Stable Disposition: HOME, SELF-CARE Additional Instructions: Rest, Ice, Compression, Elevation Use crutches/splint as directed Tylenol/ibuprofen as needed F/u with your PCP in 3-5 days for a recheck Call orthopedics Friday to schedule an appointment for further evaluation and management Return to the ED with any worsening symptoms and/or development of fever, headache, chest pain, palpitations, syncope, shortness of breath, trouble breathing, abdominal pain, n/v/d, muscle weakness/paralysis, numbness/tingling, swelling, redness, or other worsening symptoms that are concerning to you. Prescriptions: Morphine Sulfate [Morphine Ir 15 Mg Tablet] 15 mg PO TID #6 tablet Forms: Elevated Blood Pressure Referrals: PAUL CHOWDARY MD [Primary Care Provider] - Follow up as needed [facility] [Provider Group] - Follow up in 3-5 days
--- NOTE | 2019-01-01 19:53 | RADIOLOGY REPORT (SQ) ---
EXAM DESCRIPTION: FOOT LEFT COMPLETE COMPLETED DATE/TIME: 01/01/2019 7:42 pm REASON FOR STUDY: left lateral foot pain, near 5th metatarsal. COMPARISON: None. NUMBER OF VIEWS: Three views. TECHNIQUE: AP, lateral and oblique radiographic images acquired of the left foot. LIMITATIONS: None. FINDINGS: MINERALIZATION: Normal. BONES: Transverse fracture of the base of the 5th metatarsal without displacement. JOINTS: No effusions. SOFT TISSUES: No soft tissue swelling. No foreign body. OTHER: No other significant finding. IMPRESSION: Transverse fracture base of the 5th metatarsal. TECHNICAL DOCUMENTATION: JOB ID: [id number] [employer]- All Rights Reserved Reading location - IP/workstation name: [email or web address]
== END 2019-01-01 20:49 | disposition home or self-care (01) ==
LOC: ER 18:57
DX: S92.355A Nondisplaced fracture of fifth metatarsal bone, left foot, initial encounter for closed fracture (principal); X58.XXXA Exposure to other specified factors, initial encounter; I10 Essential (primary) hypertension; E10.9 Type 1 diabetes mellitus without complications; Z94.0 Kidney transplant status; Z94.83 Pancreas transplant status; Z87.442 Personal history of urinary calculi; Z90.710 Acquired absence of both cervix and uterus
CPT/HCPCS: 99283

== ENCOUNTER 2019-03-26 20:04 | Inpatient (IN) | payer MEDICARE, MEDICAID ==
[2019-03-26] MEDS ORDERED: ACETAMINOPHEN 325 MG TABLET PO ONE (23:54)
[2019-03-26] MEDS ORDERED: NORMAL SALINE 1000 ML 1,000 ML IV ONE (23:54)
--- NOTE | 2019-03-26 23:56 | ER Document Report ---
ED General - General Chief Complaint: Nausea Stated Complaint: Flank pain Time Seen by Provider: 03/26/19 23:47 Notes: Patient is a 49-year-old female that comes emergency department for chief complaint of fever, generalized body aches, and bilateral flank/side pain. Symptoms started 2-1/2 days ago. She has a history of kidney failure requiring kidney transplant and pancreatic transplant (she was previously a bad diabetic requiring dialysis, these transplants resolved both of these issues). She follows with [place] transplant team, had a transplant performed in 2016, is currently on immunosuppressive medications. Patient states she vomited once, initially on Friday she had multiple episodes of diarrhea but now she only had one episode of diarrhea over the past day. She denies difficulty breathing, chest pain, dysuria, abdominal pain. TRAVEL OUTSIDE OF THE [place] IN LAST 30 DAYS: No - Related Data Allergies/Adverse Reactions: propoxyphene napsylate [From Darvocet-N 100] Allergy (Severe, Verified 02/11/16 09:00) n and v,dizziness,coughing tuberculin, purified protein deriva [Tuberculin,Purif.Prot.Deriv.] Allergy (Severe, Verified 02/11/16 09:00) PPD CONVERTER sulfamethoxazole [From Bactrim] Allergy (Verified 01/01/19 18:59) trimethoprim [From Bactrim] Allergy (Verified 01/01/19 18:59) hydrocodone bitartrate [From Vicodin] Adverse Reaction (Unknown, Verified 02/11/16 09:00) Nausea oxycodone HCl [From Percocet] Adverse Reaction (Unknown, Verified 02/11/16 09:00) Nausea Past Medical History - General Information source: Patient - Social History Smoking Status: Never Smoker Frequency of alcohol use: None Drug Abuse: None Lives with: Family Family History: Reviewed & Not Pertinent - Past Medical History Cardiac Medical History: Reports: Hx Hypertension - on meds Denies: Hx Coronary Artery Disease, Hx Heart Attack Pulmonary Medical History: Reports: Hx Tuberculosis - EXPOSURE AT WORK AND TREATED Denies: Hx Asthma, Hx Bronchitis, Hx COPD, Hx Pneumonia Neurological Medical History: Denies: Hx Cerebrovascular Accident, Hx Seizures Endocrine Medical History: Reports: Hx Diabetes Mellitus Type 1 Renal/ Medical History: Reports: Hx Kidney Stones. Denies: Hx Peritoneal Dialysis GI Medical History: Musculoskeletal Medical History: Reports Hx Arthritis Infectious Medical History: Past Surgical History: Reports: Hx Hysterectomy, Hx Tubal Ligation. Denies: Hx Appendectomy, Hx Bowel Surgery, Hx Section, Hx Cholecystectomy, Hx Ma stectomy, Hx Open Heart Surgery, Hx Tonsillectomy - Immunizations Hx Diphtheria, Pertussis, Tetanus Vaccination: Yes Review of Systems - Review of Systems Constitutional: See HPI EENT: No symptoms reported Cardiovascular: No symptoms reported Respiratory: No symptoms reported Gastrointestinal: See HPI Genitourinary: See HPI Female Genitourinary: No symptoms reported Musculoskeletal: No symptoms reported Skin: No symptoms reported Hematologic/Lymphatic: No symptoms reported Neurological/Psychological: No symptoms reported Physical Exam - Vital signs Vitals: Temp Pulse Resp BP Pulse Ox 100.9 F H 112 H 16 160/75 H 96 03/26/19 21:03 03/26/19 21:03 03/26/19 21:03 03/26/19 21:03 03/26/19 21:03 - Notes Notes: GENERAL: Alert, interacts well. Mildly ill-appearing but nontoxic in appearance. HEAD: Normocephalic, atraumatic. EYES: Pupils equal, round, and reactive to light. Extraocular movements intact. ENT: Oral mucosa moist, tongue midline. Oropharynx unremarkable. Airway patent. NECK: Full range of motion. Supple. Trachea midline. LUNGS: Clear to auscultation bilaterally, no wheezes, rales, or rhonchi. No respiratory distress. HEART: Mildly tachycardic, normal rhythm. No murmur ABDOMEN: Soft, non-tender. Non-distended. Bowel sounds present in all 4 quadrants. GENITOURINARY: Deferred EXTREMITIES: Moves all 4 extremities spontaneously. No edema, normal radial and dorsalis pedis pulses bilaterally. No cyanosis. BACK: no cervical, thoracic, lumbar midline tenderness. No saddle anesthesia, normal distal neurovascular exam. Moves all extremities in full range of motion. NEUROLOGICAL: Alert and oriented x3. Normal speech. Cranial nerves II through XII grossly intact. PSYCH: Normal affect, normal mood. SKIN: Flushed and warm but no rash or lesion is noted. Course - Re-evaluation Re-evalutation: Patient is slightly ill-appearing, febrile, initially tachycardic but this resolved. Blood pressures have been unremarkable. Abdomen is soft and benign. No CVA tenderness. Because of patient's resolved diarrheal illness and now developing symptoms I suspect she has an underlying kidney infection. This is in the setting of a transplant patient on immunosuppressive therapy. Blood cultures pending. Lactic acid not elevated. CBC unremarkable, chemistry unremarkable with unremarkable creatinine. Patient was not able to give a urine sample, catheterization was performed, this shows obvious infection with positive nitrites, large white blood cells in clumps. Culture placed. Given Rocephin. Discussed with patient. 03/27/19 04:[address] Barnes, on-call for [place] transplant team with the team that he is following the patient, he recommends that patient can be admitted to the hospitalist here with empiric antibiotics, follow urine cultures, and continued immunosuppressive therapy. He states there does not appear to be an indication for transfer at this time with patient's normal renal functioning and s traightforward illness. I discussed this with patient, she is very agreeable to the possibility of staying here. We do have nephrology coming wind operations supervisor as well. I spoke with Dr. Bey, hospitalist, patient was admitted to the floor. - Vital Signs Vital signs: Temp Pulse Resp BP Pulse Ox 99.7 F 112 H 19 126/76 H 100 03/27/19 03:24 03/26/19 21:03 03/27/19 07:23 03/27/19 07:23 03/27/19 07:23 - Laboratory Result Diagrams: 03/27/19 01:13 03/27/19 01:13 Laboratory results interpreted by me: 03/27/19 03/27/19 03/27/19 01:13 01:13 03:24 RDW 14.4 H Seg Neutrophils % 87.6 H Lymphocytes % 9.0 L BUN 21 H Est GFR (Non-Af Amer) 52 L Glucose 125 H Direct Bilirubin 0.6 H AST 38 H Total Protein 8.9 H Urine Protein 30 H Urine Ketones 25 H Urine Blood MODERATE H Urine Nitrite POSITIVE H Ur Leukocyte Esterase LARGE H Discharge - Discharge Clinical Impression: Pyelonephritis, Kidney transplant recipient Fever Qualifiers: Fever type: unspecified Qualified Code(s): R50.9 - Fever, unspecified Condition: Stable Disposition: ADMITTED INPATIENT Admitting Provider: Sotero (Hospitalist) Unit Admitted: Medical Floor
--- NOTE | 2019-03-27 00:40 | RADIOLOGY REPORT (SQ) ---
EXAM DESCRIPTION: XR CHEST 1 VIEW COMPLETED DATE/TME: 03/26/2019 23:53 CLINICAL HISTORY: 49 years, Female, fever COMPARISON: X-ray chest 02/16/2016 NUMBER OF VIEWS: TECHNIQUE: LIMITATIONS: None. FINDINGS: No evidence of pulmonary infiltrate or pleural effusion. The heart and mediastinum are unremarkable. Pulmonary vascularity appears normal. IMPRESSION: No acute finding. copyright 2010 [employer]- All Rights Reserved
[2019-03-27 01:25] LABS: VENOUS BLOOD BASE EXCESS 3.1 mmol/L; VENOUS BLOOD HCO3 30.3 mmol/L (20-32); VENOUS BLOOD PCO2 57.1 mmHg (35-63); VENOUS BLOOD PH 7.34 (7.30-7.42)
[2019-03-27 01:29] LABS: ABSOLUTE LYMPHOCYTES (AUTO) 0.7 10^3/uL (0.5-4.7); ABSOLUTE MONOCYTES (AUTO) 0.2 10^3/uL (0.1-1.4); ABSOLUTE NEUT (AUTO) 7.1 10^3/uL (1.7-8.2); BASOPHILS % (AUTO) 0.2 % (0-2); EOSINOPHILS % (AUTO) 0.2 % (0-6); HEMATOCRIT 44.9 % (36.0-47.0); HEMOGLOBIN 14.4 g/dL (12.0-15.5); MEAN CORPUSCULAR HEMOGLOBIN 27.6 pg (27.0-33.4); MEAN CORPUSCULAR VOLUME 86 fl (80-97); PLATELET COUNT 159 10^3/uL (150-450); RED BLOOD COUNT 5.22 10^6/uL (3.72-5.28); RED CELL DISTRIBUTION WIDTH 14.4 % (11.5-14.0); SEGMENTED NEUTROPHILS % (AUTO) 87.6 % (42-78); TOTAL CELLS COUNTED % (AUTO) 100 %; WHITE BLOOD COUNT 8.1 10^3/uL (4.0-10.5)
[2019-03-27 01:44] LABS: ALANINE AMINOTRANSFERASE 22 U/L (9-52); ALBUMIN 4.8 g/dL (3.5-5.0); ALKALINE PHOSPHATASE 73 U/L (38-126); ANION GAP 11 (5-19); ASPARTATE AMINO TRANSFERASE 38 U/L (14-36); BILIRUBIN,DIRECT 0.6 mg/dL (0.0-0.4); BILIRUBIN,TOTAL 1.3 mg/dL (0.2-1.3); BLOOD UREA NITROGEN 21 mg/dL (7-20); CALCIUM 9.8 mg/dL (8.4-10.2); CARBON DIOXIDE 29 mmol/L (22-30); CHLORIDE 101 mmol/L (98-107); GLUCOSE 125 mg/dL (75-110); POTASSIUM 4.7 mmol/L (3.6-5.0); SODIUM 141.4 mmol/L (137-145); TOTAL PROTEIN 8.9 g/dL (6.3-8.2)
[2019-03-27] MEDS ORDERED: ONDANSETRON HCL INJ/PF 4 MG/2 ML SDV IV ONE (03:06)
[2019-03-27] MEDS ORDERED: NORMAL SALINE 1000 ML 1,000 ML IV ONE (03:06)
[2019-03-27 03:36] LABS: APPEARANCE,URINE CLOUDY; BILIRUBIN,URINE NEGATIVE (NEGATIVE); COLOR,URINE YELLOW; GLUCOSE, URINE NEGATIVE (NEGATIVE); KETONES,URINE 25 mg/dL (NEGATIVE); LEUKOCYTE ESTERASE,URINE LARGE (NEGATIVE); NITRITE,URINE POSITIVE (NEGATIVE); PROTEIN,URINE 30 mg/dL (NEGATIVE); UROBILINOGEN,URINE NEGATIVE mg/dL (<2.0)
[2019-03-27 03:37] LABS: URINE SPECIFIC GRAVITY 1.018
[2019-03-27] MEDS ORDERED: CEFTRIAXONE 1 GM/D5W RTU 1 GM/50 ML RTUPB IV ONE (03:57)
[2019-03-27] MEDS ORDERED: IPRATROPIUM/ALBUTEROL 0.5-2.5 MG/3 ML AMPUL NEB PRN (05:17)
[2019-03-27] MEDS ORDERED: MAG HYDROX/AL HYDROX/SIMETH SUSP 30 ML UDCUP PO PRN (05:17)
--- NOTE | 2019-03-27 05:38 | PDOC H&P ---
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 She presents 2 and half days after the onset of left-sided flank pain nausea without vomiting and some diarrhea without blood. In the emergency room she is found to have fever, tachycardia, pyuria. Her transplant team at [facility] is consulted recommending hospitalization with empiric antibiotics. She started on Rocephin and referred to the hospitalist for admission. 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 AT WORK AND TREATED Denies: Asthma, Bronchitis, Chronic Obstructive Pulmonary Disease (COPD), Pneumonia Neurological Medical History: Denies: Seizures Endocrine Medical History: Reports: Diabetes Mellitus Type 1 Renal/ Medical History: GI Medical History: Musculoskeltal Medical History: Reports: Arthritis Hematology: Reports: Anemia - hx of Denies: Sickle Cell Disease Past Surgical History Past Surgical History: Reports: Hysterectomy, Tubal Ligation, Other - Renal and pancreatic transplant Denies: Amputation, Appendectomy, Section, Cholecystectomy, Mastectomy, Tonsillectomy Social History Information Source: Patient, [facility] Records Smoking Status: Unknown if Ever Smoked Frequency of Alcohol Use: None Hx Recreational Drug Use: No Hx Prescription Drug Abuse: No - Advance Directive Resuscitation Status: Full Code Family History Family History: Hypertension Parental Family History Reviewed: Yes Children Family History Reviewed: Yes Sibling(s) Family History Reviewed.: Yes Medication/Allergy Home Medications: Timolol Maleate [Timoptic 0.25% Oph Soln 5 ml] 1 drop OU BID 07/30/12 Amlodipine Besylate 10 mg PO DAILY 09/07/14 Latanoprost [Xalatan 0.005% Oph Soln 2.5 ml] 1 drop OP QHS 09/07/14 Aspirin [Ecotrin 81 mg EC Tablet] 81 mg PO DAILY #0 tabec 09/10/14 Bumetanide [Bumex 2 mg Tablet] 3 mg PO BID 03/28/15 Clonidine HCl [Catapres 0.1 mg Tablet] 1 tab PO TID 10/20/15 Atorvastatin Calcium 10 mg PO DAILY 10/23/15 Hydralazine HCl 100 mg PO TID 10/23/15 Atorvastatin Calcium [Lipitor 10 mg Tablet] 1 tab PO DAILY 02/11/16 Calcium Acetate [Phoslo 667 mg Capsule] 2 cap PO TID 02/11/16 Insulin Aspart [Novolog Insulin (Aspart) 100 unit/mL] 10 units SUBCUT ASDIR PRN 02/11/16 Losartan Potassium 100 mg PO DAILY 02/11/16 Diphenhydramine HCl [Benadryl 25 mg Capsule] 25 mg PO Q6HP PRN capsule 02/17/16 Levofloxacin [Levaquin 500 mg Tablet] 500 mg PO Q48HS #5 tablet 02/17/16 Sodium Polystyrene Sulfonate [Sps] 15 gm PO ASDIR PRN #1 bottle 02/17/16 Morphine Sulfate [Morphine Ir 15 Mg Tablet] 15 mg PO TID #6 tablet 01/01/19 Allergies/Adverse Reactions: propoxyphene napsylate [From Darvocet-N 100] Allergy (Severe, Verified 02/11/16 09:00) n and v,dizziness,coughing tuberculin, purified protein deriva [Tuberculin,Purif.Prot.Deriv.] Allergy (Severe, Verified 02/11/16 09:00) PPD CONVERTER sulfamethoxazole [From Bactrim] Allergy (Verified 01/01/19 18:59) trimethoprim [From Bactrim] Allergy (Verified 01/01/19 18:59) hydrocodone bitartrate [From Vicodin] Adverse Reaction (Unknown, Verified 02/11/16 09:00) Nausea oxycodone HCl [From Percocet] Adverse Reaction (Unknown, Verified 02/11/16 09:00) Nausea Review of Systems Constitutional: ABSENT: chills, fever(s), headache(s), weight gain, weight loss Eyes: ABSENT: visual disturbances Ears: ABSENT: hearing changes Cardiovascular: ABSENT: chest pain, dyspnea on exertion, edema, orthropnea, palpitations Respiratory: ABSENT: cough, hemoptysis Gastrointestinal: ABSENT: abdominal pain, constipation, diarrhea, hematemesis, hematochezia, nausea, vomiting Genitourinary: ABSENT: dysuria, hematuria Musculoskeletal: ABSENT: joint swelling Integumentary: ABSENT: rash, wounds Neurological: ABSENT: abnormal gait, abnormal speech, confusion, dizziness, focal weakness, syncope Psychiatric: ABSENT: anxiety, depression, homidical ideation, suicidal ideation Endocrine: ABSENT: cold intolerance, heat intolerance, polydipsia, polyuria Hematologic/Lymphatic: ABSENT: easy bleeding, easy bruising Physical Exam Vital Signs: Temp Pulse Resp BP Pulse Ox 99.7 F 112 H 27 H 115/71 97 03/27/19 03:24 03/26/19 21:03 03/27/19 04:06 03/27/19 04:06 03/27/19 04:06 Intake & Output 03/25/19 03/26/19 03/27/19 11:59 11:59 11:59 Intake Total 1050 Balance 1050 Weight 97.9 kg General appearance: PRESENT: cooperative, mild distress, obese, well-developed, well-nourished Head exam: PRESENT: atraumatic, normocephalic Eye exam: PRESENT: conjunctiva pink, EOMI, PERRLA. ABSENT: scleral icterus Ear exam: PRESENT: normal external ear exam Mouth exam: PRESENT: moist, tongue midline Neck exam: ABSENT: carotid bruit, JVD, lymphadenopathy, thyromegaly Respiratory exam: PRESENT: clear to auscultation [place]. ABSENT: rales, rhonchi, wheezes Cardiovascular exam: PRESENT: RRR. ABSENT: diastolic murmur, rubs, systolic murmur Pulses: PRESENT: normal dorsalis pedis pul Vascular exam: PRESENT: normal capillary refill GI/Abdominal exam: PRESENT: normal bowel sounds, soft, tenderness - Left flank. ABSENT: distended, guarding, mass, organolmegaly, rebound Rectal exam: PRESENT: deferred Extremities exam: PRESENT: full ROM. ABSENT: calf tenderness, clubbing, pedal edema Neurological exam: PRESENT: alert, awake, oriented to person, oriented to place, oriented to time, oriented to situation, CN II-XII grossly intact. ABSENT: motor sensory deficit Psychiatric exam: PRESENT: appropriate affect, normal mood. ABSENT: homicidal ideation, suicidal ideation Skin exam: PRESENT: dry, intact, warm. ABSENT: cyanosis, rash Results Laboratory Results: 03/27/19 01:13 03/27/19 01:13 03/27/19 03/27/19 03/27/19 01:13 01:13 01:13 WBC 8.1 RBC 5.22 Hgb 14.4 Hct 44.9 MCV 86 MCH 27.6 MCHC 32.0 RDW 14.4 H Plt Count 159 Seg Neutrophils % 87.6 H Lymphocytes % 9.0 L Monocytes % 3.0 Eosinophils % 0.2 Basophils % 0.2 Absolute Neutrophils 7.1 Absolute Lymphocytes 0.7 Absolute Monocytes 0.2 Absolute Eosinophils 0.0 Absolute Basophils 0.0 VBG pH VBG pCO2 VBG HCO3 VBG Base Excess Sodium 141.4 Potassium 4.7 Chloride 101 Carbon Dioxide 29 Anion Gap 11 BUN 21 H Creatinine 1.12 Est GFR ( Amer) > 60 Est GFR (Non-Af Amer) 52 L Glucose 125 H Lactic Acid 1.7 Calcium 9.8 Total Bilirubin 1.3 AST 38 H ALT 22 Alkaline Phosphatase 73 Total Protein 8.9 H Albumin 4.8 Urine Color Urine Appearance Urine pH Ur Specific [place] Urine Protein Urine Glucose (UA) Urine Ketones Urine Blood Urine Nitrite Ur Leukocyte Esterase Urine WBC (Auto) Urine RBC (Auto) 03/27/19 03/27/19 01:13 03:24 WBC RBC Hgb Hct MCV MCH MCHC RDW Plt Count Seg Neutrophils % Lymphocytes % Monocytes % Eosinophils % Basophils % Absolute Neutrophils Absolute Lymphocytes Absolute Monocytes Absolute Eosinophils Absolute Basophils VBG pH 7.34 VBG pCO2 57.1 VBG HCO3 30.3 VBG Base Excess 3.1 Sodium Potassium Chloride Carbon Dioxide Anion Gap BUN Creatinine Est GFR ( Amer) Est GFR (Non-Af Amer) Glucose Lactic Acid Calcium Total Bilirubin AST ALT Alkaline Phosphatase Total Protein Albumin Urine Color YELLOW Urine Appearance CLOUDY Urine pH 6.0 Ur Specific [place] 1.018 Urine Protein 30 H Urine Glucose (UA) NEGATIVE Urine Ketones 25 H Urine Blood MODERATE H Urine Nitrite POSITIVE H Ur Leukocyte Esterase LARGE H Urine WBC (Auto) 138 Urine RBC (Auto) 7 Impressions: Chest X-Ray 03/26/19 23:53 IMPRESSION: No acute finding. copyright 2010 [email or web address]- All Rights Reserved Assessment and Plan - Diagnosis (1) Pyelonephritis Is this a current diagnosis for this admission?: Yes Plan: Complicated by immunosuppression and transplant kidney, continue empiric Rocephin and symptomatic management, follow-up ultrasound blood and urine culture (2) Fever Qualifiers: Fever type: unspecified Qualified Code(s): R50.9 - Fever, unspecified Is this a current diagnosis for this admission?: Yes Plan: Secondary to #1, symptomatic management (3) Kidney transplant recipient Is this a current diagnosis for this admission?: Yes Plan: Continue outpatient immunosuppression regimen, follow-up at [facility] transplant center as needed - Time Time Spent with patient: 25-34 minutes - Inpatient Certification Medical Necessity: Need Close Monitoring Due to Risk of Patient Decompensation
[2019-03-27] MEDS ORDERED: DOCUSATE SODIUM 100 MG CAPSULE PO ONE (06:00)
--- NOTE | 2019-03-27 07:06 | RADIOLOGY REPORT (SQ) ---
EXAM DESCRIPTION: US ABDOMEN COMPLETED DATE/TME: 03/27/2019 00:00 CLINICAL HISTORY: 49 years Female, pyelo Comparison:Feb 11 2016 LIMITATIONS: Bowel gas artifact. FINDINGS: 11 cm left lower abdominal transplant kidney appears unremarkable in size, shape, echotexture, and vascularity. A reported transplant pancreas in the right lower abdominal quadrant is nonvisualized. Gallbladder, negative sonographic Cruz's test, liver, a 0.3-cm diameter common bile duct, no intrahepatic ductal dilation, hepatopetal patent flow of the portal vein, spleen, nine-cm left kidney,8 -cm right kidney, obscured [place] pancreas, visualized vasculature/abdominal aorta, and no significant ascites appear otherwise unremarkable. IMPRESSION: 1. No acute findings. Limitation. 2. 11 cm left lower abdominal transplant kidney. 3. Nonvisualized transplant pancreas. 4. Nonvisualized [place] pancreas.
[2019-03-27] MEDS: HEPARIN SOD (PORCINE) 5,000 UNIT/ML 1 ML SYRINGE SUBCUT SCH ×3 (07:19→21:34)
[2019-03-27] MEDS: ACETAMINOPHEN 325 MG TABLET PO PRN ×2 (14:18→20:28)
[2019-03-27] MEDS ORDERED: ALBUTEROL SULFATE HFA (90 MCG/PUFF) 200 PUFF/8.5 GM MDI IH PRN (16:57)
--- NOTE | 2019-03-27 16:58 | PDOC PROGRESS REPORT ---
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 She was found to be febrile and has UTI on admission was admitted for acute pyelonephritis earlier today. Upon encounter, she appears more comfortable. She says that she did have dysuria at home. She says she has some nausea feels better overall better this morning. Reason For Visit: UTI Physical Exam Vital Signs: Temp Pulse Resp BP Pulse Ox 98.6 F 112 H 22 H 167/109 H 100 03/27/19 14:00 03/26/19 21:03 03/27/19 13:01 03/27/19 13:01 03/27/19 13:01 Intake & Output 03/26/19 03/27/19 03/28/19 06:59 06:59 06:59 Intake Total 1050 1000 Balance 1050 1000 Weight 215 lb 13.321 oz General appearance: PRESENT: no acute distress, well-developed, well-nourished Head exam: PRESENT: atraumatic, normocephalic Eye exam: PRESENT: conjunctiva pink, EOMI, PERRLA. ABSENT: scleral icterus Ear exam: PRESENT: normal external ear exam Neck exam: ABSENT: carotid bruit, JVD, lymphadenopathy, thyromegaly Respiratory exam: PRESENT: clear to auscultation [place]. ABSENT: rales, rhonchi, wheezes Cardiovascular exam: PRESENT: RRR. ABSENT: diastolic murmur, rubs, systolic murmur Pulses: PRESENT: normal dorsalis pedis pul GI/Abdominal exam: PRESENT: normal bowel sounds, soft. ABSENT: distended, guarding, mass, organolmegaly, rebound, tenderness Rectal exam: PRESENT: deferred Extremities exam: PRESENT: full ROM. ABSENT: calf tenderness, clubbing, pedal edema Neurological exam: PRESENT: alert, awake, oriented to person, oriented to place, oriented to time, oriented to situation, CN II-XII grossly intact. ABSENT: motor sensory deficit Results Laboratory Results: 03/27/19 01:13 03/27/19 01:13 03/27/19 03/27/19 03/27/19 01:13 01:13 01:13 WBC 8.1 RBC 5.22 Hgb 14.4 Hct 44.9 MCV 86 MCH 27.6 MCHC 32.0 RDW 14.4 H Plt Count 159 Seg Neutrophils % 87.6 H Lymphocytes % 9.0 L Monocytes % 3.0 Eosinophils % 0.2 Basophils % 0.2 Absolute Neutrophils 7.1 Absolute Lymphocytes 0.7 Absolute Monocytes 0.2 Absolute Eosinophils 0.0 Absolute Basophils 0.0 VBG pH VBG pCO2 VBG HCO3 VBG Base Excess Sodium 141.4 Potassium 4.7 Chloride 101 Carbon Dioxide 29 Anion Gap 11 BUN 21 H Creatinine 1.12 Est GFR ( Amer) > 60 Est GFR (Non-Af Amer) 52 L Glucose 125 H Lactic Acid 1.7 Calcium 9.8 Total Bilirubin 1.3 AST 38 H ALT 22 Alkaline Phosphatase 73 Total Protein 8.9 H Albumin 4.8 Urine Color Urine Appearance Urine pH Ur Specific [place] Urine Protein Urine Glucose (UA) Urine Ketones Urine Blood Urine Nitrite Ur Leukocyte Esterase Urine WBC (Auto) Urine RBC (Auto) 03/27/19 03/27/19 01:13 03:24 WBC RBC Hgb Hct MCV MCH MCHC RDW Plt Count Seg Neutrophils % Lymphocytes % Monocytes % Eosinophils % Basophils % Absolute Neutrophils Absolute Lymphocytes Absolute Monocytes Absolute Eosinophils Absolute Basophils VBG pH 7.34 VBG pCO2 57.1 VBG HCO3 30.3 VBG Base Excess 3.1 Sodium Potassium Chloride Carbon Dioxide Anion Gap BUN Creatinine Est GFR ( Amer) Est GFR (Non-Af Amer) Glucose Lactic Acid Calcium Total Bilirubin AST ALT Alkaline Phosphatase Total Protein Albumin Urine Color YELLOW Urine Appearance CLOUDY Urine pH 6.0 Ur Specific [place] 1.018 Urine Protein 30 H Urine Glucose (UA) NEGATIVE Urine Ketones 25 H Urine Blood MODERATE H Urine Nitrite POSITIVE H Ur Leukocyte Esterase LARGE H Urine WBC (Auto) 138 Urine RBC (Auto) 7 Impressions: Chest X-Ray 03/26/19 23:53 IMPRESSION: No acute finding. copyright 2011 [employer]- All Rights Reserved Abdomen Ultrasound 03/27/19 00:00 IMPRESSION: 1. No acute findings. Limitation. 2. 11 cm left lower abdominal transplant kidney. 3. Nonvisualized transplant pancreas. 4. Nonvisualized [place] pancreas. Assessment and Plan - Diagnosis (1) Sepsis Is this a current diagnosis for this admission?: Yes Plan: Secondary to acute pyelonephritis. Present tachycardia and fever. She is immunosuppressed. Blood culture is growing gram-negative bacteria 2/2 so far. We will switch Rocephin to Zosyn for now and will de-escalate pending final culture results. Urine culture pending. (2) Pyelonephritis Is this a current diagnosis for this admission?: Yes Plan: As per number 1. (3) Kidney transplant recipient Is this a current diagnosis for this admission?: Yes Plan: Will resume tacrolimus, mycophenolate and prednisone. - Time Time Spent with patient: 25-34 minutes
[2019-03-27] MEDS ORDERED: PIPERACILLIN/TAZOBACTAM 3.375 GM VIAL IV ONE ×2 (17:52→17:53)
[2019-03-27] MEDS: DOCUSATE SODIUM 100 MG CAPSULE PO SCH (18:13)
[2019-03-27] MEDS: PIPERACILLIN SODIUM/TAZOBACTAM 3.375 GM in NORMAL SALINE 100 ML IV SCH ×2 (18:14→23:37)
[2019-03-27] MEDS ORDERED: (PENDING PHARMACY ID) (Mycophenolate Sodium 540 MG) PO SCH (21:00)
[2019-03-27] MEDS: NORMAL SALINE 1000 ML 1,000 ML IV PRN (21:34)
[2019-03-27] MEDS: ATORVASTATIN CALCIUM 10 MG TABLET PO SCH (21:35)
[2019-03-27] MEDS: TACROLIMUS ANHYDROUS 1 MG CAPSULE PO SCH (21:35)
[2019-03-27] MEDS ORDERED: CEFTRIAXONE 1 GM/D5W RTU 1 GM/50 ML RTUPB IV SCH (22:00)
[2019-03-28] MEDS: ACETAMINOPHEN 325 MG TABLET PO PRN ×3 (01:06→21:54)
[2019-03-28] MEDS: NORMAL SALINE 1000 ML 1,000 ML IV PRN (01:08)
[2019-03-28 04:43] LABS: ABSOLUTE EOSINOPHILS # (AUTO) 0.1 10^3/uL (0.0-0.6); ABSOLUTE LYMPHOCYTES (AUTO) 0.7 10^3/uL (0.5-4.7); ABSOLUTE MONOCYTES (AUTO) 0.8 10^3/uL (0.1-1.4); ABSOLUTE NEUT (AUTO) 4.5 10^3/uL (1.7-8.2); BASOPHILS % (AUTO) 0.1 % (0-2); HEMATOCRIT 34.2 % (36.0-47.0); LYMPHOCYTES % (AUTO) 12.3 % (13-45); MEAN CORPUSCULAR HEMOGLOBIN 27.8 pg (27.0-33.4); MEAN CORPUSCULAR HGB CONC 32.2 g/dL (32.0-36.0); MEAN CORPUSCULAR VOLUME 86 fl (80-97); MONOCYTES % (AUTO) 12.9 % (3-13); PLATELET COUNT 139 10^3/uL (150-450); RED BLOOD COUNT 3.96 10^6/uL (3.72-5.28); SEGMENTED NEUTROPHILS % (AUTO) 73.7 % (42-78); TOTAL CELLS COUNTED % (AUTO) 100 %; WHITE BLOOD COUNT 6.1 10^3/uL (4.0-10.5)
[2019-03-28 04:56] LABS: ANION GAP 6 (5-19); BLOOD UREA NITROGEN 18 mg/dL (7-20); CALCIUM 7.9 mg/dL (8.4-10.2); CARBON DIOXIDE 25 mmol/L (22-30); CHLORIDE 108 mmol/L (98-107); GLUCOSE 145 mg/dL (75-110); POTASSIUM 4.4 mmol/L (3.6-5.0); SODIUM 138.7 mmol/L (137-145)
[2019-03-28] MEDS: HEPARIN SOD (PORCINE) 5,000 UNIT/ML 1 ML SYRINGE SUBCUT SCH ×3 (05:21→21:04)
[2019-03-28] MEDS: PIPERACILLIN SODIUM/TAZOBACTAM 3.375 GM in NORMAL SALINE 100 ML IV SCH ×3 (05:23→17:44)
[2019-03-28] MEDS: ONDANSETRON HCL INJ/PF 4 MG/2 ML SDV IV PRN (10:02)
[2019-03-28] MEDS: PREDNISONE 5 MG TABLET PO SCH (10:06)
[2019-03-28] MEDS: TACROLIMUS ANHYDROUS 1 MG CAPSULE PO SCH ×2 (10:07→21:04)
[2019-03-28] MEDS: DOCUSATE SODIUM 100 MG CAPSULE PO SCH ×2 (10:07→17:30)
[2019-03-28] MEDS: ASPIRIN 81 MG TABLET, ENT COATED PO SCH (10:07)
--- NOTE | 2019-03-28 15:20 | PDOC PROGRESS REPORT ---
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 She was found to be febrile and has UTI on admission was admitted for acute pyelonephritis earlier today. Upon encounter, she appears more comfortable. She says that she did have dysuria at home. She says she has some nausea feels better overall better this morning. 03/28: No acute event overnight. She appears more comfortable today and she continues to feel better. Blood culture is growing gram-negative rods /. Reason For Visit: UTI Physical Exam Vital Signs: Temp Pulse Resp BP Pulse Ox 99.0 F 96 16 160/82 H 96 03/28/19 11:52 03/28/19 11:52 03/28/19 11:52 03/28/19 11:52 03/28/19 11:52 Intake & Output 03/27/19 03/28/19 03/29/19 06:59 06:59 06:59 Intake Total 1050 4384 480 Balance 1050 4384 480 Weight 215 lb 13.321 oz 215 lb 13.321 oz General appearance: PRESENT: no acute distress, well-developed, well-nourished Head exam: PRESENT: atraumatic, normocephalic Eye exam: PRESENT: conjunctiva pink, EOMI, PERRLA. ABSENT: scleral icterus Ear exam: PRESENT: normal external ear exam Mouth exam: PRESENT: moist, tongue midline Neck exam: ABSENT: carotid bruit, JVD, lymphadenopathy, thyromegaly Respiratory exam: PRESENT: clear to auscultation [place]. ABSENT: rales, rhonchi, wheezes Cardiovascular exam: PRESENT: RRR. ABSENT: diastolic murmur, rubs, systolic murmur Pulses: PRESENT: normal dorsalis pedis pul GI/Abdominal exam: PRESENT: normal bowel sounds, soft. ABSENT: distended, guarding, mass, organolmegaly, rebound, tenderness Rectal exam: PRESENT: deferred Extremities exam: PRESENT: full ROM. ABSENT: calf tenderness, clubbing, pedal edema Neurological exam: PRESENT: alert, awake, oriented to person, oriented to place, oriented to time, oriented to situation, CN II-XII grossly intact. ABSENT: motor sensory deficit Results Laboratory Results: 03/28/19 03:50 03/28/19 03:50 03/28/19 03/28/19 03:50 03:50 WBC 6.1 RBC 3.96 Hgb 11.0 L D Hct 34.2 L MCV 86 MCH 27.8 MCHC 32.2 RDW 14.0 Plt Count 139 L Seg Neutrophils % 73.7 Lymphocytes % 12.3 L Monocytes % 12.9 Eosinophils % 1.0 Basophils % 0.1 Absolute Neutrophils 4.5 Absolute Lymphocytes 0.7 Absolute Monocytes 0.8 Absolute Eosinophils 0.1 Absolute Basophils 0.0 Sodium 138.7 Potassium 4.4 Chloride 108 H Carbon Dioxide 25 Anion Gap 6 BUN 18 Creatinine 1.09 Est GFR ( Amer) > 60 Est GFR (Non-Af Amer) 54 L Glucose 145 H Calcium 7.9 L Impressions: Chest X-Ray 03/26/19 23:53 IMPRESSION: No acute finding. copyright 2010 [employer]- All Rights Reserved Abdomen Ultrasound 03/27/19 00:00 IMPRESSION: 1. No acute findings. Limitation. 2. 11 cm left lower abdominal transplant kidney. 3. Nonvisualized transplant pancreas. 4. Nonvisualized [place] pancreas. Assessment and Plan - Diagnosis (1) Sepsis Is this a current diagnosis for this admission?: Yes Plan: Secondary to acute pyelonephritis. Present tachycardia and fever. She is immunosuppressed. Blood culture is growing gram-negative bacteria 2/2 so far. Switched Rocephin to Zosyn and will de-escalate pending final culture results. Urine culture is also growing the same. (2) Pyelonephritis Is this a current diagnosis for this admission?: Yes Plan: As per number 1. (3) Kidney transplant recipient Is this a current diagnosis for this admission?: Yes Plan: Resumed tacrolimus, mycophenolate and prednisone. - Time Time Spent with patient: 25-34 minutes
[2019-03-28] MEDS: ATORVASTATIN CALCIUM 10 MG TABLET PO SCH (21:04)
[2019-03-28] MEDS ORDERED: AMLODIPINE BESYLATE 10 MG TABLET PO ONE (21:15)
[2019-03-28] MEDS ORDERED: HYDRALAZINE HCL INJ/PF 20 MG/1 ML SDV IV PRN (21:15)
[2019-03-29] MEDS: PIPERACILLIN SODIUM/TAZOBACTAM 3.375 GM in NORMAL SALINE 100 ML IV SCH ×3 (03:20→12:33)
[2019-03-29] MEDS: HEPARIN SOD (PORCINE) 5,000 UNIT/ML 1 ML SYRINGE SUBCUT SCH ×3 (05:08→21:21)
[2019-03-29] MEDS: ACETAMINOPHEN 325 MG TABLET PO PRN (07:54)
[2019-03-29] MEDS: DOCUSATE SODIUM 100 MG CAPSULE PO SCH ×2 (09:44→17:04)
[2019-03-29] MEDS: ASPIRIN 81 MG TABLET, ENT COATED PO SCH (09:44)
[2019-03-29] MEDS: PREDNISONE 5 MG TABLET PO SCH (09:45)
[2019-03-29] MEDS: TACROLIMUS ANHYDROUS 1 MG CAPSULE PO SCH ×2 (09:45→21:16)
--- NOTE | 2019-03-29 12:16 | RADIOLOGY REPORT (SQ) ---
EXAM DESCRIPTION: CT ABD/PELVIS NO ORAL OR IV COMPLETED DATE/TIME: 03/29/2019 10:29 am REASON FOR STUDY: acute pyelo,flank pain COMPARISON: CT abdomen pelvis 04/05/2015, 09/07/2014 Abdominal ultrasound 03/27/2019 TECHNIQUE: CT scan of the abdomen and pelvis performed without intravenous or oral contrast. Images reviewed with lung, soft tissue, and bone windows. Reconstructed coronal and sagittal MPR images revi ewed. All images stored on PACS. All CT scanners at this facility use dose modulation, iterative reconstruction, and/or weight based d osing when appropriate to reduce radiation dose to as low as reasonably achievable (ALARA). [facility]: Dose Right [facility]: CareDose [facility]: Dose Right [facility]: Teradose 4D [facility]: Smart [employer] RADIATION DOSE: CT Rad equipment meets quality standard of care and radiation dose reduction techniq ues were employed. CTDIvol: 18.5 mGy. DLP: 980 mGy-cm.mGy. LIMITATIONS: None. FINDINGS: [place] kidneys are small bilaterally, 8 cm in length. No cysts, stones, masses, or hydron ephrosis. No right or left [place] ureteral calculi. 11 cm left lower quadrant renal transplant. No hydronephrosis or stones. No cysts or masses. No pe rinephric fluid collection around the left lower quadrant transplant kidney. Urinary bladder is decompressed. No bladder calculi. Right lower quadrant pancreas transplant is present, without surrounding inflammatory change. LOWER CHEST: No significant findings. No nodules or infiltrates. NON-CONTRASTED LIVER, SPLEEN, ADRENALS: Evaluation limited by lack of IV contrast. No identified sign ificant masses. PANCREAS: [place] pancreas unremarkable. Right lower quadrant pancreas transplant is present, without inflammatory change. GALLBLADDER: Contracted, not well seen AORTA AND RETROPERITONEUM: No aneurysm. No retroperitoneal masses or adenopathy. BOWEL AND PERITONEAL CAVITY: Large amount of stool throughout the colon. Grossly nonobstructive amber l gas pattern. No free intraperitoneal air or fluid APPENDIX: Surgically absent PELVIS, BLADDER, AND ABDOMINAL WALL:Left lower quadrant pelvic transplant kidney. Right lower quadra nt pancreatic transplant. Post hysterectomy. No free pelvic fluid. Bladder decompressed. Rectum u nremarkable. BONES: No significant findings. OTHER: No other significant finding. IMPRESSION: NO SIGNIFICANT OR ACUTE PROCESS IN THE ABDOMEN OR PELVIS. COMMENT: Quality ID # [id number]: Final reports with documentation of one or more dose reduction techniques (e.g., Automated exposure control, adjustment of the mA and/or kV according to patient size, use of iterative reconstruction technique) TECHNICAL DOCUMENTATION: JOB ID: [id number] [employer]- All Rights Reserved Reading location - IP/workstation name: [facility]
--- NOTE | 2019-03-29 15:35 | Progress Note ---
Provider Note Provider Note: ID Consult Note Asked to review patient's chart. Pt not seen or examined. Pt is a 49 year old woman with PMH including obesity and kidney and pancreas transplant on immunosuppressive medications in 2016 who presented on 03/27/19 to [facility] with 2.5 days of fever, generalized body aches, flank pain, n ausea/vomiting and an episode of nonbloody diarrhea. She admitted to having some dysuria at home. She was febrile and tachycardic on presentation with L flank tenderness on exam initially. She was found to have E coli bacteremia due to pyelonephritis with the same E coli also in her urine culture. Ultrasound of her abdomen was limited by bowel gas but did not reveal any acute findings. CT of the abdomen and pelvis without contrast showed no acute findings in the abdomen, no obstruction or suggestion of a perinephric collection. She defeverseced and has reported feeling better over the course of her stay. In her chart, Bactrim is listed as a medication to which she is allergic. The E coli isolate is reported susceptible by the lab to all agents tested. Impression/Recommendations E coli bacteremia secondary to pyelonephritis in renal transplant patient - Currently on Zosyn, clinically improving, without other complication - Can continue with Rocephin as an inpatient, rather than Zosyn, given the identity of the organism. Can plan for PO switch at discharge to Cipro 500 mg BID as an outpatient to complete the remainder of treatment. The patient would need to be counseled on the need to schedule her PO magnesium for a time that does not interfere with Cipro. Multivalent cations should be taken 2 hours before or 6 hours after Cipro to avoid chelating Cipro. If the magnesium supplement is not necessary, it could be held until treatment is completed and then resumed. Bacteremic pyelonephritis can be treated with a fluoroquinolone for as short as 7 days duration, but considering her immunosuppression, aiming for completion of 14 days appears to be reasonable. Darryl Dumont MD [facility] Infectious Diseases pager [phone]
--- NOTE | 2019-03-29 16:23 | PDOC PROGRESS REPORT ---
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 She was found to be febrile and has UTI on admission was admitted for acute pyelonephritis earlier today. Upon encounter, she appears more comfortable. She says that she did have dysuria at home. She says she has some nausea feels better overall better this morning. 03/28: She appears more comfortable today and she continues to feel better. Blood culture is growing gram-negative rods 2/. 03/29: No acute event overnight. She complained of mild flank pain this morning. No fever chills. Blood culture came back positive for E. coli 2/. Urine also culture also grew the same. Appreciate ID recommendations. Will switch Zosyn to Rocephin. Anticipate discharge with oral antibiotics in the next 24 hours if she continues to do better. Reason For Visit: UTI Physical Exam Vital Signs: Temp Pulse Resp BP Pulse Ox 97.6 F 87 14 153/86 H 98 03/29/19 12:29 03/29/19 14:00 03/29/19 12:29 03/29/19 12:29 03/29/19 12:29 Intake & Output 03/28/19 03/29/19 03/30/19 06:59 06:59 06:59 Intake Total 4384 1420 100 Balance 4384 1420 100 Weight 215 lb 13.321 oz 215 lb 13.321 oz General appearance: PRESENT: no acute distress, well-developed, well-nourished Head exam: PRESENT: atraumatic, normocephalic Eye exam: PRESENT: conjunctiva pink, EOMI, PERRLA. ABSENT: scleral icterus Ear exam: PRESENT: normal external ear exam Mouth exam: PRESENT: moist, tongue midline Neck exam: ABSENT: carotid bruit, JVD, lymphadenopathy, thyromegaly Respiratory exam: PRESENT: clear to auscultation [place]. ABSENT: rales, rhonchi, wheezes Cardiovascular exam: PRESENT: RRR. ABSENT: diastolic murmur, rubs, systolic murmur Pulses: PRESENT: normal dorsalis pedis pul GI/Abdominal exam: PRESENT: normal bowel sounds, soft. ABSENT: distended, guarding, mass, organolmegaly, rebound, tenderness Rectal exam: PRESENT: deferred Extremities exam: PRESENT: full ROM. ABSENT: calf tenderness, clubbing, pedal edema Neurological exam: PRESENT: alert, awake, oriented to person, oriented to place, oriented to time, oriented to situation, CN II-XII grossly intact. ABSENT: motor sensory deficit Results Laboratory Results: 03/28/19 03:50 03/28/19 03:50 03/27/19 01:13 Blood Blood Culture - Final Escherichia Coli 03/27/19 02:06 Blood Blood Culture - Final Escherichia Coli 03/27/19 03:24 Catheterized Urine Urine Culture - Final Escherichia Coli Impressions: Chest X-Ray 03/26/19 23:53 IMPRESSION: No acute finding. copyright 2011 [employer]- All Rights Reserved Abdomen Ultrasound 03/27/19 00:00 IMPRESSION: 1. No acute findings. Limitation. 2. 11 cm left lower abdominal transplant kidney. 3. Nonvisualized transplant pancreas. 4. Nonvisualized [place] pancreas. Abdomen/Pelvis CT 03/29/19 09:56 IMPRESSION: NO SIGNIFICANT OR ACUTE PROCESS IN THE ABDOMEN OR PELVIS. Assessment and Plan - Diagnosis (1) Sepsis Is this a current diagnosis for this admission?: Yes Plan: Secondary to acute pyelonephritis. Present tachycardia and fever. She is immunosuppressed. Blood culture is growing gram-negative bacteria 2/2 so far. Switched Rocephin to Zosyn and will de-escalate pending final culture results. Urine culture is also growing the same. 03/29: Blood culture came back positive for E. coli 2/2. Urine also culture also grew the same. Appreciate ID recommendations. Will switch Zosyn to Rocephin. Anticipate discharge with oral antibiotics in the next 24 hours if she continues to do better. (2) Pyelonephritis Is this a current diagnosis for this admission?: Yes Plan: As per number 1. (3) Kidney transplant recipient Is this a current diagnosis for this admission?: Yes Plan: Resumed tacrolimus, mycophenolate and prednisone. (4) Immunosuppressed status Is this a current diagnosis for this admission?: Yes - Time Time Spent with patient: 25-34 minutes
[2019-03-29] MEDS: ATORVASTATIN CALCIUM 10 MG TABLET PO SCH (21:16)
[2019-03-29] MEDS: CEFTRIAXONE SODIUM 1,000 MG in DEXTROSE 5%-WATER 50 ML IV SCH (21:21)
[2019-03-30] MEDS: ACETAMINOPHEN 325 MG TABLET PO PRN ×2 (05:21→21:14)
[2019-03-30] MEDS: HEPARIN SOD (PORCINE) 5,000 UNIT/ML 1 ML SYRINGE SUBCUT SCH ×3 (05:23→21:28)
[2019-03-30] MEDS: ASPIRIN 81 MG TABLET, ENT COATED PO SCH (09:25)
[2019-03-30] MEDS: DOCUSATE SODIUM 100 MG CAPSULE PO SCH ×2 (09:25→17:15)
[2019-03-30] MEDS: TACROLIMUS ANHYDROUS 1 MG CAPSULE PO SCH ×2 (09:26→21:28)
[2019-03-30] MEDS: PREDNISONE 5 MG TABLET PO SCH (09:26)
[2019-03-30] MEDS: ONDANSETRON HCL INJ/PF 4 MG/2 ML SDV IV PRN (09:30)
[2019-03-30] MEDS ORDERED: CEFTRIAXONE 1 GM/D5W RTU 1 GM/50 ML RTUPB IV SCH (10:00)
--- NOTE | 2019-03-30 15:55 | PDOC PROGRESS REPORT ---
Subjective Progress Note for:: 03/30/19 Subjective:: Patient denies recent fever or chills. She continues to tolerate the antibiotics. She reports renal transplant and pancreatic transplant personally 3 years ago. This is her first infection that has led her to the hospital she has been on chronic immunosuppression since then. Blood cultures negative x24 hours. Reason For Visit: UTI Physical Exam Vital Signs: Temp Pulse Resp BP Pulse Ox 97.5 F 82 14 133/83 H 100 03/30/19 11:26 03/30/19 14:00 03/30/19 08:03 03/30/19 11:26 03/30/19 11:26 Intake & Output 03/29/19 03/30/19 03/31/19 06:59 06:59 06:59 Intake Total 1420 1450 Balance 1420 1450 Weight 97.9 kg 83.8 kg General appearance: PRESENT: no acute distress, well-developed, well-nourished Head exam: PRESENT: atraumatic, normocephalic Eye exam: PRESENT: conjunctiva pink, EOMI, PERRLA. ABSENT: scleral icterus Ear exam: PRESENT: normal external ear exam Mouth exam: PRESENT: moist, tongue midline Respiratory exam: PRESENT: clear to auscultation [place]. ABSENT: rales, rhonchi, wheezes Cardiovascular exam: PRESENT: RRR. ABSENT: diastolic murmur, rubs, systolic murmur GI/Abdominal exam: PRESENT: normal bowel sounds, soft. ABSENT: distended, guarding, mass, organolmegaly, rebound, tenderness Rectal exam: PRESENT: deferred Extremities exam: PRESENT: other - Trace edema bilateral lower extremities Musculoskeletal exam: PRESENT: full ROM Neurological exam: PRESENT: alert, awake, oriented to person, oriented to place, oriented to time, oriented to situation, CN II-XII grossly intact. ABSENT: motor sensory deficit Psychiatric exam: PRESENT: appropriate affect, normal mood. ABSENT: homicidal ideation, suicidal ideation Focused psych exam: ABSENT: catatonic, delusional, euphoric, flight of ideas, internal stimuli, paranoid, pressured speech, psychomotor agitation, restlessness, other Skin exam: PRESENT: dry, intact, warm. ABSENT: cyanosis, rash Results Laboratory Results: 03/28/19 03:50 03/28/19 03:50 03/29/19 16:38 Magnesium 1.6 Impressions: Chest X-Ray 03/26/19 23:53 IMPRESSION: No acute finding. copyright 2010 [employer]- All Rights Reserved Abdomen Ultrasound 03/27/19 00:00 IMPRESSION: 1. No acute findings. Limitation. 2. 11 cm left lower abdominal transplant kidney. 3. Nonvisualized transplant pancreas. 4. Nonvisualized [place] pancreas. Abdomen/Pelvis CT 03/29/19 09:56 IMPRESSION: NO SIGNIFICANT OR ACUTE PROCESS IN THE ABDOMEN OR PELVIS. Assessment and Plan - Diagnosis (1) Immunosuppressed status Is this a current diagnosis for this admission?: Yes Plan: Chronic suppression due to renal and pancreatic transplant in 2016 (2) Pyelonephritis Is this a current diagnosis for this admission?: Yes Plan: Likely origin of sepsis. Continue with ID recommendations. Impression/Recommendations E coli bacteremia secondary to pyelonephritis in renal transplant patient - Currently on Zosyn, clinically improving, without other complication - Can continue with Rocephin as an inpatient, rather than Zosyn, given the identity of the organism. Can plan for PO switch at discharge to Cipro 500 mg BID as an outpatient to complete the remainder of treatment. The patient would need to be counseled on the need to schedule her PO magnesium for a time that does not interfere with Cipro. Multivalent cations should be taken 2 hours before or 6 hours after Cipro to avoid chelating Cipro. If the magnesium supplement is not necessary, it could be held until treatment is completed and then resumed. Bacteremic pyelonephritis can be treated with a fluoroquinolone for as short as 7 days duration, but considering her immunosuppression, aiming for completion of 14 days appears to be reasonable. (3) Sepsis Is this a current diagnosis for this admission?: Yes Plan: No longer septic. Patient is improving. Vital signs stable. Patient does not appear ill or toxic. - Time Time Spent with patient: 15-24 minutes Medications reviewed and adjusted accordingly: Yes Anticipated discharge: Home - Inpatient Certification Based on my medical assessment, after consideration of the patient's comorbidities, presenting symptoms, or acuity I expect that the services needed warrant INPATIENT care.: Yes I certify that my determination is in accordance with my understanding of Medicare's requirements for reasonable and necessary INPATIENT services [42 CFR 412.3e].: Yes - Plan Summary Plan Summary: Plan to discharge in the next 24 to 48 hours on oral Cipro with a 14-day course per infectious disease.
[2019-03-30] MEDS: CEFTRIAXONE SODIUM 1,000 MG in DEXTROSE 5%-WATER 50 ML IV SCH (21:08)
[2019-03-30] MEDS: ATORVASTATIN CALCIUM 10 MG TABLET PO SCH (21:28)
[2019-03-31] MEDS: HEPARIN SOD (PORCINE) 5,000 UNIT/ML 1 ML SYRINGE SUBCUT SCH ×3 (05:52→21:18)
[2019-03-31] MEDS: ASPIRIN 81 MG TABLET, ENT COATED PO SCH (09:00)
[2019-03-31] MEDS: PREDNISONE 5 MG TABLET PO SCH (09:00)
[2019-03-31] MEDS: DOCUSATE SODIUM 100 MG CAPSULE PO SCH ×2 (09:00→17:18)
[2019-03-31] MEDS: TACROLIMUS ANHYDROUS 1 MG CAPSULE PO SCH ×2 (09:01→21:18)
--- NOTE | 2019-03-31 15:36 | PDOC PROGRESS REPORT ---
Subjective Progress Note for:: 03/31/19 Subjective:: patient continues to report improvements. appetite is improving. strength is improving. no fever or chills. denies dysuria Reason For Visit: UTI Physical Exam Vital Signs: Temp Pulse Resp BP Pulse Ox 98.2 F 91 17 129/77 H 100 03/31/19 11:20 03/31/19 14:00 03/31/19 00:11 03/31/19 11:20 03/31/19 11:20 Intake & Output 03/30/19 03/31/19 04/01/19 06:59 06:59 06:59 Intake Total 1450 440 Balance 1450 440 Weight 83.8 kg 83.3 kg General appearance: PRESENT: no acute distress, well-developed, well-nourished Head exam: PRESENT: atraumatic, normocephalic Eye exam: PRESENT: conjunctiva pink, EOMI, PERRLA. ABSENT: scleral icterus Ear exam: PRESENT: normal external ear exam Mouth exam: PRESENT: moist, tongue midline Neck exam: ABSENT: carotid bruit, JVD, lymphadenopathy, thyromegaly Respiratory exam: PRESENT: clear to auscultation [place]. ABSENT: rales, rhonchi, wheezes Cardiovascular exam: PRESENT: RRR. ABSENT: diastolic murmur, rubs, systolic murmur Pulses: PRESENT: normal dorsalis pedis pul Vascular exam: PRESENT: normal capillary refill GI/Abdominal exam: PRESENT: normal bowel sounds, soft. ABSENT: distended, guarding, mass, organolmegaly, rebound, tenderness Rectal exam: PRESENT: deferred Extremities exam: PRESENT: full ROM. ABSENT: calf tenderness, clubbing, pedal edema Neurological exam: PRESENT: alert, awake, oriented to person, oriented to place, oriented to time, oriented to situation, CN II-XII grossly intact. ABSENT: motor sensory deficit Psychiatric exam: PRESENT: appropriate affect, normal mood. ABSENT: homicidal ideation, suicidal ideation Skin exam: PRESENT: dry, intact, warm. ABSENT: cyanosis, rash Results Laboratory Results: 03/28/19 03:50 03/28/19 03:50 Impressions: Chest X-Ray 03/26/19 23:53 IMPRESSION: No acute finding. copyright 2011 [employer]- All Rights Reserved Abdomen Ultrasound 03/27/19 00:00 IMPRESSION: 1. No acute findings. Limitation. 2. 11 cm left lower abdominal transplant kidney. 3. Nonvisualized transplant pancreas. 4. Nonvisualized [place] pancreas. Abdomen/Pelvis CT 03/29/19 09:56 IMPRESSION: NO SIGNIFICANT OR ACUTE PROCESS IN THE ABDOMEN OR PELVIS. Assessment and Plan - Diagnosis (1) Immunosuppressed status Is this a current diagnosis for this admission?: Yes Plan: Chronic suppression due to renal and pancreatic transplant in april 2016 (2) Pyelonephritis Is this a current diagnosis for this admission?: Yes Plan: Likely origin of sepsis. Continue with ID recommendations. blood cultures negative at 24h. conitnue on iv abx. plan to move to oral abx and d/c in next 48h Impression/Recommendations E coli bacteremia secondary to pyelonephritis in renal transplant patient - Currently on Zosyn, clinically improving, without other complication - Can continue with Rocephin as an inpatient, rather than Zosyn, given the identity of the organism. Can plan for PO switch at discharge to -Cipro 500 mg BID as an outpatient to complete the remainder of treatment. The patient would need to be counseled on the need to schedule her PO magnesium for a time that does not interfere with Cipro. Multivalent cations should be taken 2 hours before or 6 hours after Cipro to avoid chelating Cipro. If the magn esium supplement is not necessary, it could be held until treatment is completed and then resumed. Bacteremic pyelonephritis can be treated with a fluoroquinolone for as short as 7 days duration, but considering her immunosuppression, aiming for completion of 14 days appears to be reasonable. (3) Sepsis Is this a current diagnosis for this admission?: Yes Plan: No longer septic. Patient is improving. Vital signs stable. Patient does not appear ill or toxic. - Time Time Spent with patient: 15-24 minutes Medications reviewed and adjusted accordingly: Yes Anticipated discharge: Home Within: within 48 hours
[2019-03-31] MEDS: CEFTRIAXONE SODIUM 1,000 MG in DEXTROSE 5%-WATER 50 ML IV SCH (21:15)
[2019-03-31] MEDS: ATORVASTATIN CALCIUM 10 MG TABLET PO SCH (21:18)
[2019-04-01] MEDS: HEPARIN SOD (PORCINE) 5,000 UNIT/ML 1 ML SYRINGE SUBCUT SCH (05:09)
[2019-04-01 06:04] LABS: ALANINE AMINOTRANSFERASE 56 U/L (9-52); ALBUMIN 3.2 g/dL (3.5-5.0); ALKALINE PHOSPHATASE 57 U/L (38-126); ANION GAP 7 (5-19); ASPARTATE AMINO TRANSFERASE 53 U/L (14-36); BILIRUBIN,DIRECT 0.2 mg/dL (0.0-0.4); BILIRUBIN,TOTAL 0.3 mg/dL (0.2-1.3); BLOOD UREA NITROGEN 21 mg/dL (7-20); CALCIUM 8.7 mg/dL (8.4-10.2); CARBON DIOXIDE 24 mmol/L (22-30); CHLORIDE 107 mmol/L (98-107); GLUCOSE 129 mg/dL (75-110); POTASSIUM 4.5 mmol/L (3.6-5.0); TOTAL PROTEIN 6.2 g/dL (6.3-8.2)
[2019-04-01 06:50] LABS: ABSOLUTE EOSINOPHILS # (AUTO) 0.1 10^3/uL (0.0-0.6); ABSOLUTE LYMPHOCYTES (AUTO) 1.2 10^3/uL (0.5-4.7); ABSOLUTE MONOCYTES (AUTO) 0.6 10^3/uL (0.1-1.4); BASOPHILS % (AUTO) 0.2 % (0-2); EOSINOPHILS % (AUTO) 1.4 % (0-6); HEMATOCRIT 36.7 % (36.0-47.0); HEMOGLOBIN 11.8 g/dL (12.0-15.5); LYMPHOCYTES % (AUTO) 25.3 % (13-45); MEAN CORPUSCULAR HEMOGLOBIN 27.6 pg (27.0-33.4); MEAN CORPUSCULAR HGB CONC 32.1 g/dL (32.0-36.0); MEAN CORPUSCULAR VOLUME 86 fl (80-97); MONOCYTES % (AUTO) 11.7 % (3-13); PLATELET COUNT 227 10^3/uL (150-450); RED BLOOD COUNT 4.27 10^6/uL (3.72-5.28); RED CELL DISTRIBUTION WIDTH 13.9 % (11.5-14.0); SEGMENTED NEUTROPHILS % (AUTO) 61.4 % (42-78); TOTAL CELLS COUNTED % (AUTO) 100 %; WHITE BLOOD COUNT 4.9 10^3/uL (4.0-10.5)
[2019-04-01 08:54] VITALS: BP 104/67
[2019-04-01] MEDS: PREDNISONE 5 MG TABLET PO SCH (09:39)
[2019-04-01] MEDS: TACROLIMUS ANHYDROUS 1 MG CAPSULE PO SCH (09:39)
[2019-04-01] MEDS: ASPIRIN 81 MG TABLET, ENT COATED PO SCH (09:39)
[2019-04-01] MEDS: DOCUSATE SODIUM 100 MG CAPSULE PO SCH (09:40)
--- NOTE | 2019-04-01 10:11 | PDOC DISCHARGE SUMMARY ---
General - Admit/Disc Date/PCP Admission Date/Primary Care Provider: 03/27/19 04:54 Discharge Date: 04/01/19 - Discharge Diagnosis (1) Immunosuppressed status Is this a current diagnosis for this admission?: Yes Summary: continued on home meds on admission. s/p renal and pancreatic transplant 3 years ago. has labs drawn q 6 weeks (2) Pyelonephritis Is this a current diagnosis for this admission?: Yes Summary: received zosyn and rocephin while admitted. treatment plan was changed to ceftriaxone only per ID recommendations. on d/c she will be given a 14 day script of 500 mg bid cipro to continue taking. her course is longer given her immune state (3) UTI (urinary tract infection) Is this a current diagnosis for this admission?: Yes Summary: see above. continue abx (4) Bacteremia Is this a current diagnosis for this admission?: Yes Summary: 1/ + e.coli. she may have received abx prior to blood cultures which would explain the results. no systemic symptoms. vss. get pcp to check cultures post abx completion. Infectious Diseases Impression/Recommendations E coli bacteremia secondary to pyelonephritis in renal transplant patient - Currently on Zosyn, clinically improving, without other complication - Can continue with Rocephin as an inpatient, rather than Zosyn, given the identity of the organism. Can plan for PO switch at discharge to Cipro 500 mg BID as an outpatient to complete the remainder of treatment. The patient would need to be counseled on the need to schedule her PO magnesium for a time that does not interfere with Cipro. Multivalent cations should be taken 2 hours before or 6 hours after Cipro to avoid chelating Cipro. If the magnesium supplement is not necessary, it could be held until treatment is completed and then resumed. Bacteremic pyelonephritis can be treated with a fluoroquinolone for as short as 7 days duration, but considering her immunosuppression, aiming for completion of 14 days appears to be reasonable. - Additional Information Resuscitation Status: Full Code Discharge Diet: As Tolerated Discharge Activity: Activity As Tolerated Prescriptions: Ciprofloxacin HCl [Cipro 500 mg Tablet] 500 mg PO BID 14 Days #28 tablet Home Medications: Albuterol Sulfate [Proair HFA Inhalation Aerosol 8.5 gm MDI] 2 puff IH Q6HP PRN 03/27/19 Aspirin [Ecotrin 81 mg EC Tablet] 81 mg PO DAILY@0900 07/06/19 Atorvastatin Calcium [Lipitor 10 mg Tablet] 10 mg PO QHS@209903/27/19 Brimonidine Tartrate/Timolol [Combigan 0.2%-0.5% Eye Drops] 1 drop OU Q12@09,209903/27/19 Latanoprost [Xalatan 0.005% Oph Soln 2.5 ml] 1 drop PO QHS@209903/27/19 Magnesium Oxide [Mag-Ox 400 mg Tablet] 400 mg PO BID@1300,1700 03/27/19 Mycophenolate Sodium [Myfortic 180 mg Tablet.dr] 540 mg PO Q12@09,209903/27/19 Prednisone [Deltasone 5 mg Tablet] 5 mg PO DAILY@89903/27/19 Tacrolimus [Prograf] 4 mg PO QHS@209903/27/19 Tacrolimus [Prograf] 5 mg PO DAILY@89903/27/19 Ciprofloxacin HCl [Cipro 500 mg Tablet] 500 mg PO BID 14 Days #28 tablet 04/01/19 History of Present Illness Patient complains of: uti History of Present Illness: JANAE FARIAS is a 49 year old female with past medical history of renal and pancreatic transplant 2016 on immunosuppression. She presents 2 and half days after the onset of left-sided flank pain nausea without vomiting and some diarrhea without blood. In the emergency room she is found to have fever, tachycardia, pyuria. Her transplant team at [facility] is consulted recommending hospitalization with empiric antibiotics. She started on Rocephin and referred to the hospitalist for admission. Hospital Course Hospital Course: see above Physical Exam Vital Signs: Temp Pulse Resp BP Pulse Ox 97.8 F 81 19 104/67 100 04/01/19 08:00 04/01/19 08:00 04/01/19 08:00 04/01/19 08:00 04/01/19 08:00 Intake & Output 03/31/19 04/01/19 04/02/19 06:59 06:59 06:59 Intake Total 440 987 Balance 440 987 Weight 83.3 kg 84 kg General appearance: PRESENT: no acute distress, well-developed, well-nourished Head exam: PRESENT: atraumatic, normocephalic Eye exam: PRESENT: conjunctiva pink, EOMI, PERRLA. ABSENT: scleral icterus Ear exam: PRESENT: normal external ear exam Mouth exam: PRESENT: moist, tongue midline Neck exam: ABSENT: carotid bruit, JVD, lymphadenopathy, thyromegaly Respiratory exam: PRESENT: clear to auscultation [place]. ABSENT: rales, rhonchi, wheezes Cardiovascular exam: PRESENT: RRR. ABSENT: diastolic murmur, rubs, systolic murmur Pulses: PRESENT: normal dorsalis pedis pul Vascular exam: PRESENT: normal capillary refill GI/Abdominal exam: PRESENT: normal bowel sounds, soft. ABSENT: distended, guarding, mass, organolmegaly, rebound, tenderness Rectal exam: PRESENT: deferred Extremities exam: PRESENT: full ROM. ABSENT: calf tenderness, clubbing, pedal edema Neurological exam: PRESENT: alert, awake, oriented to person, oriented to place, oriented to time, oriented to situation, CN II-XII grossly intact. ABSENT: motor sensory deficit Psychiatric exam: PRESENT: appropriate affect, normal mood. ABSENT: homicidal ideation, suicidal ideation Skin exam: PRESENT: dry, intact, warm. ABSENT: cyanosis, rash Results Laboratory Results: 04/01/19 06:24 04/01/19 05:12 04/01/19 04/01/19 04/01/19 05:12 05:12 06:24 WBC Cancelled 4.9 RBC Cancelled 4.27 Hgb Cancelled 11.8 L Hct Cancelled 36.7 MCV Cancelled 86 MCH Cancelled 27.6 MCHC Cancelled 32.1 RDW Cancelled 13.9 Plt Count Cancelled 227 Seg Neutrophils % Cancelled 61.4 Lymphocytes % Cancelled 25.3 Monocytes % Cancelled 11.7 Eosinophils % Cancelled 1.4 Basophils % Cancelled 0.2 Absolute Neutrophils Cancelled 3.0 Absolute Lymphocytes Cancelled 1.2 Absolute Monocytes Cancelled 0.6 Absolute Eosinophils Cancelled 0.1 Absolute Basophils Cancelled 0.0 Sodium 138.0 Potassium 4.5 Chloride 107 Carbon Dioxide 24 Anion Gap 7 BUN 21 H Creatinine 0.82 Est GFR ( Amer) > 60 Est GFR (Non-Af Amer) > 60 Glucose 129 H Calcium 8.7 Total Bilirubin 0.3 AST 53 H ALT 56 H Alkaline Phosphatase 57 Total Protein 6.2 L Albumin 3.2 L Impressions: Chest X-Ray 03/26/19 23:53 IMPRESSION: No acute finding. copyright 2010 [employer]- All Rights Reserved Abdomen Ultrasound 03/27/19 00:00 IMPRESSION: 1. No acute findings. Limitation. 2. 11 cm left lower abdominal transplant kidney. 3. Nonvisualized transplant pancreas. 4. Nonvisualized [place] pancreas. Abdomen/Pelvis CT 03/29/19 09:56 IMPRESSION: NO SIGNIFICANT OR ACUTE PROCESS IN THE ABDOMEN OR PELVIS. Qualifiers - * PATIENT BEING DISCHARGED WITH ANY OF THE FOLLOWING DIAGNOSIS: No Acute Heart Failure - Is this a Heart Failure Patient?: No Plan Discharge Plan: continue po cipro x 14 days. f/u with pcp in next 1-2 weeks. ask about post abx cultures. f/u with [facility] as scheduled, but call to make sure they do not want to see you before jun.
== END 2019-04-01 13:15 | disposition home or self-care (01) | DRG 690 ==
LOC: ER 20:04 → EH 03-27 04:54 → 4N 03-27 14:34
PROVIDERS: ADMIT Internal Medicine; ATTEND Internal Medicine
DX: N10 Acute pyelonephritis (principal); R78.81 Bacteremia; Z94.83 Pancreas transplant status; Z94.0 Kidney transplant status; N39.0 Urinary tract infection, site not specified; B96.20 Unspecified Escherichia coli [E. coli] as the cause of diseases classified elsewhere; E10.9 Type 1 diabetes mellitus without complications; E66.9 Obesity, unspecified; I10 Essential (primary) hypertension; M19.90 Unspecified osteoarthritis, unspecified site; Z79.82 Long term (current) use of aspirin; Z79.899 Other long term (current) drug therapy; Z79.52 Long term (current) use of systemic steroids; Z79.4 Long term (current) use of insulin; Z86.11 Personal history of tuberculosis; Z88.6 Allergy status to analgesic agent; Z88.7 Allergy status to serum and vaccine; Z88.2 Allergy status to sulfonamides; Z82.49 Family history of ischemic heart disease and other diseases of the circulatory system
CPT/HCPCS: 36415; 71045; 74176; 76700; 80048; 80053; 81001; 81025; 82803; 83036; 83605; 83735; 85025; 87040; 87045; 87077; 87086; 87088; 87186; 87205; 99285; J0696; J1644; J2405; J2543; J3490; J7030; J7050; J7060; J7507; J7512

== ENCOUNTER → 2019-06-03 | Outpatient (CLI) | payer MEDICARE, MEDICAID ==
[2019-06-03 12:11] LABS: HEMOGLOBIN 12.2 g/dL (12.0-15.5); MEAN CORPUSCULAR HEMOGLOBIN 27.8 pg (27.0-33.4); MEAN CORPUSCULAR HGB CONC 32.2 g/dL (32.0-36.0); MEAN CORPUSCULAR VOLUME 86 fl (80-97); PLATELET COUNT 159 10^3/uL (150-450); RED BLOOD COUNT 4.41 10^6/uL (3.72-5.28); RED CELL DISTRIBUTION WIDTH 13.8 % (11.5-14.0); WHITE BLOOD COUNT 3.2 10^3/uL (4.0-10.5)
[2019-06-03 12:29] LABS: APPEARANCE,URINE CLEAR; BILIRUBIN,URINE NEGATIVE (NEGATIVE); COLOR,URINE YELLOW; GLUCOSE, URINE NEGATIVE (NEGATIVE); KETONES,URINE NEGATIVE (NEGATIVE); LEUKOCYTE ESTERASE,URINE NEGATIVE (NEGATIVE); NITRITE,URINE NEGATIVE (NEGATIVE); PROTEIN,URINE NEGATIVE (NEGATIVE); URINE SPECIFIC GRAVITY 1.019; UROBILINOGEN,URINE NEGATIVE mg/dL (<2.0)
[2019-06-03 12:40] LABS: AMYLASE 48 U/L (30-110); ANION GAP 6 (5-19); BLOOD UREA NITROGEN 24 mg/dL (7-20); CALCIUM 9.3 mg/dL (8.4-10.2); CARBON DIOXIDE 30 mmol/L (22-30); CHLORIDE 102 mmol/L (98-107); GLUCOSE 131 mg/dL (75-110); POTASSIUM 4.4 mmol/L (3.6-5.0)
[2019-06-03 12:58] LABS: ADD MANUAL MICROSCOPIC YES; UR PRO/CREAT RATIO RESULT 0.1 mg/mg (0.0-0.2); URINE CREATININE 112.5 mg/dL (15-278); URINE PROTEIN 7.3 mg/dL (<12)
[2019-06-03 12:59] LABS: RBC,URINE NONE SEEN /HPF; WBC,URINE NONE SEEN /HPF
== END ==
LOC: OD 10:12
PROVIDERS: ATTEND Student in an Organized Health Care Education/Training Program
DX: Z51.81 Encounter for therapeutic drug level monitoring (principal); Z94.0 Kidney transplant status; Z94.83 Pancreas transplant status
CPT/HCPCS: 36415; 80048; 80197; 81001; 82150; 82570; 83690; 84156; 85027; 87086

== ENCOUNTER → 2019-06-09 | Outpatient (CLI) | payer MEDICARE, MEDICAID ==
--- NOTE | 2019-06-09 17:01 | WOMENS IMAGING REPORT ---
EXAM DESCRIPTION: 3D SCREENING MAMMO BILAT COMPLETED DATE/TIME: 06/09/2019 9:56 am REASON FOR STUDY: Z12.31 ENCOUNTER FOR SCREENING MAMMOGRAM FOR MALIGNANT NEOPLASM OF BREAST Z12.31 ENCNTR SCREEN MAMMOGRAM FOR MALIGNANT NEOPLASM OF [place] COMPARISON: Multiple since 2012 EXAM PARAMETERS: Views: Standard craniocaudal and mediolateral oblique views of each breast recorded using digital acquisition and breast tomosynthesis. Read with the assistance of CAD. .[facility] - [employer] Director Of [employer] Services Version 9.2 LIMITATIONS: None. FINDINGS: No suspicious masses, suspicious calcifications or architectural distortion. No areas of c oncern. IMPRESSION: NEGATIVE MAMMOGRAM. BIRADS 1. BREAST DENSITY: b. There are scattered areas of fibroglandular density. BIRAD: ASSESSMENT: 1 NEGATIVE RECOMMENDATION: ROUTINE SCREENING COMMENT: The patient has been notified of the results by letter per MQSA requirements. Additional no tification policies are in place for contacting patient with suspicious or incomplete findings. Quality ID #[id number]: The [employer] recommends an annual screening mammogram for women aged 40 years or over. This facility utilizes a reminder system to ensure that all patients receive reminder letters, and/or direct phone calls for appointments. This includes reminders for routine scr eening mammograms, diagnostic mammograms, or other Breast Imaging Interventions when appropriate. Th is patient will be placed in the appropriate reminder system. TECHNICAL DOCUMENTATION: FINDING NUMBER: (1) ASSESSMENT: (1) JOB ID: [id number] [employer]- All Rights Reserved Reading location - IP/workstation name: [email or web address]
== END ==
LOC: WI 09:28
PROVIDERS: ATTEND Obstetrics & Gynecology Gynecology
DX: Z12.31 Encounter for screening mammogram for malignant neoplasm of breast (principal)
CPT/HCPCS: 77063; 77067

== ENCOUNTER → 2020-03-23 | Outpatient (CLI) | payer MEDICARE, MEDICAID ==
[2020-03-23 09:05] LABS: ABSOLUTE LYMPHOCYTES (AUTO) 1.5 10^3/uL (0.5-4.7); ABSOLUTE MONOCYTES (AUTO) 0.4 10^3/uL (0.1-1.4); ABSOLUTE NEUT (AUTO) 2.1 10^3/uL (1.7-8.2); BASOPHILS % (AUTO) 0.2 % (0-2); HEMATOCRIT 39.7 % (36.0-47.0); HEMOGLOBIN 13.1 g/dL (12.0-15.5); LYMPHOCYTES % (AUTO) 36.6 % (13-45); MEAN CORPUSCULAR HEMOGLOBIN 28.6 pg (27.0-33.4); MEAN CORPUSCULAR VOLUME 87 fl (80-97); MONOCYTES % (AUTO) 9.5 % (3-13); PLATELET COUNT 191 10^3/uL (150-450); RED BLOOD COUNT 4.57 10^6/uL (3.72-5.28); RED CELL DISTRIBUTION WIDTH 13.4 % (11.5-14.0); SEGMENTED NEUTROPHILS % (AUTO) 52.7 % (42-78); TOTAL CELLS COUNTED % (AUTO) 100 %
[2020-03-23 09:11] LABS: APPEARANCE,URINE CLEAR; BILIRUBIN,URINE NEGATIVE (NEGATIVE); COLOR,URINE YELLOW; GLUCOSE, URINE NEGATIVE (NEGATIVE); KETONES,URINE NEGATIVE (NEGATIVE); LEUKOCYTE ESTERASE,URINE NEGATIVE (NEGATIVE); NITRITE,URINE NEGATIVE (NEGATIVE); PROTEIN,URINE NEGATIVE (NEGATIVE); URINE SPECIFIC GRAVITY 1.028
[2020-03-23 09:19] LABS: AMYLASE 49 U/L (30-110); BLOOD UREA NITROGEN 21 mg/dL (7-20); CALCIUM 9.5 mg/dL (8.4-10.2); GLUCOSE 135 mg/dL (75-110); POTASSIUM 4.3 mmol/L (3.6-5.0)
[2020-03-23 09:24] LABS: ANION GAP 5 (5-19); CARBON DIOXIDE 31 mmol/L (22-30); CHLORIDE 101 mmol/L (98-107)
[2020-03-23 09:33] LABS: URINE CREATININE 287.2 mg/dL (15-278); URINE PROTEIN 6.3 mg/dL (<12)
[2020-03-26 11:10] LABS: CMV DNA PCR QUANT Negative (Negative)
== END ==
LOC: OD 07:49
PROVIDERS: ATTEND Internal Medicine
DX: B25.9 Cytomegaloviral disease, unspecified (principal); Z94.0 Kidney transplant status; Z51.81 Encounter for therapeutic drug level monitoring; Z79.899 Other long term (current) drug therapy
CPT/HCPCS: 36415; 80048; 80197; 81001; 82150; 82570; 83690; 84156; 85025; 87496; 87799

== ENCOUNTER → 2020-04-11 | Outpatient (CLI) | payer MEDICARE, MEDICAID ==
[2020-04-11 08:38] LABS: ABSOLUTE LYMPHOCYTES (AUTO) 1.5 10^3/uL (0.5-4.7); ABSOLUTE MONOCYTES (AUTO) 0.4 10^3/uL (0.1-1.4); ABSOLUTE NEUT (AUTO) 1.7 10^3/uL (1.7-8.2); BASOPHILS % (AUTO) 0.3 % (0-2); EOSINOPHILS % (AUTO) 1.2 % (0-6); HEMATOCRIT 40.4 % (36.0-47.0); HEMOGLOBIN 13.1 g/dL (12.0-15.5); LYMPHOCYTES % (AUTO) 40.6 % (13-45); MEAN CORPUSCULAR HEMOGLOBIN 28.3 pg (27.0-33.4); MEAN CORPUSCULAR HGB CONC 32.5 g/dL (32.0-36.0); MEAN CORPUSCULAR VOLUME 87 fl (80-97); MONOCYTES % (AUTO) 10.4 % (3-13); PLATELET COUNT 181 10^3/uL (150-450); RED BLOOD COUNT 4.63 10^6/uL (3.72-5.28); RED CELL DISTRIBUTION WIDTH 13.7 % (11.5-14.0); SEGMENTED NEUTROPHILS % (AUTO) 47.5 % (42-78); TOTAL CELLS COUNTED % (AUTO) 100 %; WHITE BLOOD COUNT 3.6 10^3/uL (4.0-10.5)
[2020-04-11 08:50] LABS: APPEARANCE,URINE SLIGHTLY-CLOUDY; BILIRUBIN,URINE NEGATIVE (NEGATIVE); COLOR,URINE YELLOW; GLUCOSE, URINE NEGATIVE (NEGATIVE); KETONES,URINE NEGATIVE (NEGATIVE); LEUKOCYTE ESTERASE,URINE NEGATIVE (NEGATIVE); NITRITE,URINE NEGATIVE (NEGATIVE); PROTEIN,URINE NEGATIVE (NEGATIVE); URINE SPECIFIC GRAVITY 1.028
[2020-04-11 09:02] LABS: AMYLASE 43 U/L (30-110); BLOOD UREA NITROGEN 22 mg/dL (7-20); CALCIUM 9.3 mg/dL (8.4-10.2); CARBON DIOXIDE 30 mmol/L (22-30); CHLORIDE 103 mmol/L (98-107); GLUCOSE 128 mg/dL (75-110); POTASSIUM 4.3 mmol/L (3.6-5.0)
[2020-04-11 09:10] LABS: URINE CREATININE 264.6 mg/dL (15-278); URINE PROTEIN 6.2 mg/dL (<12)
[2020-04-11 09:12] LABS: ANION GAP 4 (5-19)
[2020-04-13 07:03] LABS: TACROLIMUS (FK506) 9.8 ng/mL (2.0-20.0)
[2020-04-13 11:55] LABS: BK PCR QNT Negative copies/mL (Negative)
== END ==
LOC: OD 07:31
PROVIDERS: ATTEND Internal Medicine
DX: B25.9 Cytomegaloviral disease, unspecified (principal); Z94.0 Kidney transplant status; Z51.81 Encounter for therapeutic drug level monitoring; Z79.899 Other long term (current) drug therapy
CPT/HCPCS: 36415; 80048; 80197; 81001; 82150; 82570; 83690; 84156; 85025; 87496; 87799

== ENCOUNTER → 2020-04-27 | Outpatient (CLI) | payer MEDICARE, MEDICAID ==
[2020-04-27 13:13] LABS: ABSOLUTE LYMPHOCYTES (AUTO) 1.3 10^3/uL (0.5-4.7); ABSOLUTE MONOCYTES (AUTO) 0.4 10^3/uL (0.1-1.4); BASOPHILS % (AUTO) 0.5 % (0-2); EOSINOPHILS % (AUTO) 1.3 % (0-6); HEMATOCRIT 38.8 % (36.0-47.0); HEMOGLOBIN 12.5 g/dL (12.0-15.5); LYMPHOCYTES % (AUTO) 34.6 % (13-45); MEAN CORPUSCULAR HGB CONC 32.1 g/dL (32.0-36.0); MEAN CORPUSCULAR VOLUME 87 fl (80-97); MONOCYTES % (AUTO) 10.6 % (3-13); PLATELET COUNT 213 10^3/uL (150-450); RED BLOOD COUNT 4.44 10^6/uL (3.72-5.28); RED CELL DISTRIBUTION WIDTH 13.7 % (11.5-14.0); TOTAL CELLS COUNTED % (AUTO) 100 %; WHITE BLOOD COUNT 3.8 10^3/uL (4.0-10.5)
[2020-04-27 13:24] LABS: APPEARANCE,URINE CLEAR; BILIRUBIN,URINE NEGATIVE (NEGATIVE); COLOR,URINE YELLOW; GLUCOSE, URINE NEGATIVE (NEGATIVE); KETONES,URINE NEGATIVE (NEGATIVE); LEUKOCYTE ESTERASE,URINE NEGATIVE (NEGATIVE); NITRITE,URINE NEGATIVE (NEGATIVE); PROTEIN,URINE NEGATIVE (NEGATIVE); URINE SPECIFIC GRAVITY 1.026
[2020-04-27 13:41] LABS: AMYLASE 50 U/L (30-110); ANION GAP 6 (5-19); BLOOD UREA NITROGEN 18 mg/dL (7-20); CALCIUM 9.4 mg/dL (8.4-10.2); CARBON DIOXIDE 30 mmol/L (22-30); CHLORIDE 102 mmol/L (98-107); GLUCOSE 134 mg/dL (75-110); POTASSIUM 4.5 mmol/L (3.6-5.0)
[2020-04-27 13:50] LABS: URINE CREATININE 222.8 mg/dL (15-278); URINE PROTEIN 7.3 mg/dL (<12)
== END ==
LOC: OD 12:09
PROVIDERS: ATTEND Internal Medicine
DX: B25.9 Cytomegaloviral disease, unspecified (principal); Z94.0 Kidney transplant status; Z51.81 Encounter for therapeutic drug level monitoring; Z79.899 Other long term (current) drug therapy
CPT/HCPCS: 36415; 80048; 80197; 81001; 82150; 82570; 83690; 84156; 85025; 87496; 87799

== ENCOUNTER → 2020-06-13 | Outpatient (CLI) | payer MEDICARE, MEDICAID ==
--- NOTE | 2020-06-13 10:32 | WOMENS IMAGING REPORT ---
EXAM DESCRIPTION: 3D SCREENING MAMMO BILAT IMAGES COMPLETED DATE/TIME: 06/13/2020 10:11 am REASON FOR STUDY: Z12.31 ENCOUNTER FOR SCREENING MAMMOGRAM FOR MALIGNANT NEOPLASM OF BREAST Z12.31 ENCNTR SCREEN MAMMOGRAM FOR MALIGNANT NEOPLASM OF [place] COMPARISON: Multiple since 2011 EXAM PARAMETERS: Views: Standard craniocaudal and mediolateral oblique views of each breast recorded using digital acquisition and breast tomosynthesis. Read with the assistance of CAD. .[facility] - [employer] Applications Sales Representative Version 9.2 LIMITATIONS: None. FINDINGS: No suspicious masses, suspicious calcifications or architectural distortion. No areas of c oncern. IMPRESSION: NEGATIVE MAMMOGRAM. BIRADS 1. BREAST DENSITY: b. There are scattered areas of fibroglandular density. BIRAD: ASSESSMENT: 1 NEGATIVE RECOMMENDATION: ROUTINE SCREENING Please continue yearly bilateral screening mammography/tomosynthesis in May 2021 COMMENT: The patient has been notified of the results by letter per MQSA requirements. Additional no tification policies are in place for contacting patient with suspicious or incomplete findings. Quality ID #[id number]: The [employer] recommends an annual screening mammogram for women aged 40 years or over. This facility utilizes a reminder system to ensure that all patients receive reminder letters, and/or direct phone calls for appointments. This includes reminders for routine scr eening mammograms, diagnostic mammograms, or other Breast Imaging Interventions when appropriate. Th is patient will be placed in the appropriate reminder system. TECHNICAL DOCUMENTATION: FINDING NUMBER: (1) ASSESSMENT: (1) JOB ID: [id number] 2010 [employer]- All Rights Reserved Reading location - IP/workstation name: [email or web address]
== END ==
LOC: WI 09:36
PROVIDERS: ATTEND Obstetrics & Gynecology Gynecology
DX: Z12.31 Encounter for screening mammogram for malignant neoplasm of breast (principal)
CPT/HCPCS: 77063; 77067

== ENCOUNTER → 2020-06-19 | Outpatient (CLI) | payer MEDICARE, MEDICAID ==
[2020-06-19 10:50] LABS: ABSOLUTE EOSINOPHILS # (AUTO) 0.1 10^3/uL (0.0-0.6); ABSOLUTE LYMPHOCYTES (AUTO) 1.2 10^3/uL (0.5-4.7); ABSOLUTE MONOCYTES (AUTO) 0.3 10^3/uL (0.1-1.4); ABSOLUTE NEUT (AUTO) 2.3 10^3/uL (1.7-8.2); BASOPHILS % (AUTO) 0.3 % (0-2); EOSINOPHILS % (AUTO) 1.3 % (0-6); HEMATOCRIT 41.2 % (36.0-47.0); HEMOGLOBIN 13.6 g/dL (12.0-15.5); LYMPHOCYTES % (AUTO) 31.3 % (13-45); MEAN CORPUSCULAR HEMOGLOBIN 28.4 pg (27.0-33.4); MEAN CORPUSCULAR HGB CONC 32.9 g/dL (32.0-36.0); MEAN CORPUSCULAR VOLUME 86 fl (80-97); MONOCYTES % (AUTO) 8.5 % (3-13); PLATELET COUNT 199 10^3/uL (150-450); RED BLOOD COUNT 4.77 10^6/uL (3.72-5.28); RED CELL DISTRIBUTION WIDTH 13.3 % (11.5-14.0); SEGMENTED NEUTROPHILS % (AUTO) 58.6 % (42-78); TOTAL CELLS COUNTED % (AUTO) 100 %
[2020-06-19 10:54] LABS: APPEARANCE,URINE CLEAR; BILIRUBIN,URINE NEGATIVE (NEGATIVE); COLOR,URINE YELLOW; GLUCOSE, URINE NEGATIVE (NEGATIVE); KETONES,URINE NEGATIVE (NEGATIVE); LEUKOCYTE ESTERASE,URINE NEGATIVE (NEGATIVE); NITRITE,URINE NEGATIVE (NEGATIVE); PROTEIN,URINE NEGATIVE (NEGATIVE); URINE SPECIFIC GRAVITY 1.023; UROBILINOGEN,URINE NEGATIVE mg/dL (<2.0)
[2020-06-19 11:10] LABS: AMYLASE 323 U/L (30-110); ANION GAP 8 (5-19); BLOOD UREA NITROGEN 28 mg/dL (7-20); CALCIUM 10.3 mg/dL (8.4-10.2); CARBON DIOXIDE 31 mmol/L (22-30); CHLORIDE 100 mmol/L (98-107); GLUCOSE 159 mg/dL (75-110); POTASSIUM 4.5 mmol/L (3.6-5.0)
[2020-06-19 11:10] LABS: UR PRO/CREAT RATIO RESULT 0.1 mg/mg (0.0-0.2); URINE PROTEIN 8.2 mg/dL (<12)
[2020-06-20 14:45] LABS: BK PCR QNT Negative copies/mL (Negative)
== END ==
LOC: OD 09:41
PROVIDERS: ATTEND Internal Medicine
DX: Z94.0 Kidney transplant status (principal); B25.9 Cytomegaloviral disease, unspecified; Z51.81 Encounter for therapeutic drug level monitoring; Z79.899 Other long term (current) drug therapy
CPT/HCPCS: 36415; 80048; 80197; 81001; 82150; 82570; 83690; 84156; 85025; 87496; 87799

== ENCOUNTER → 2020-06-28 | Outpatient (CLI) | payer MEDICARE, MEDICAID ==
[2020-06-28 12:42] LABS: ABSOLUTE LYMPHOCYTES (AUTO) 1.6 10^3/uL (0.5-4.7); ABSOLUTE MONOCYTES (AUTO) 0.6 10^3/uL (0.1-1.4); ABSOLUTE NEUT (AUTO) 2.4 10^3/uL (1.7-8.2); BASOPHILS % (AUTO) 0.1 % (0-2); EOSINOPHILS % (AUTO) 0.8 % (0-6); HEMATOCRIT 37.8 % (36.0-47.0); HEMOGLOBIN 12.5 g/dL (12.0-15.5); LYMPHOCYTES % (AUTO) 34.4 % (13-45); MEAN CORPUSCULAR HEMOGLOBIN 28.2 pg (27.0-33.4); MEAN CORPUSCULAR VOLUME 85 fl (80-97); MONOCYTES % (AUTO) 13.4 % (3-13); PLATELET COUNT 181 10^3/uL (150-450); RED BLOOD COUNT 4.43 10^6/uL (3.72-5.28); RED CELL DISTRIBUTION WIDTH 13.4 % (11.5-14.0); SEGMENTED NEUTROPHILS % (AUTO) 51.3 % (42-78); TOTAL CELLS COUNTED % (AUTO) 100 %; WHITE BLOOD COUNT 4.8 10^3/uL (4.0-10.5)
[2020-06-28 13:01] LABS: AMYLASE 83 U/L (30-110); ANION GAP 8 (5-19); BLOOD UREA NITROGEN 29 mg/dL (7-20); CALCIUM 9.2 mg/dL (8.4-10.2); CARBON DIOXIDE 31 mmol/L (22-30); CHLORIDE 100 mmol/L (98-107); GLUCOSE 174 mg/dL (75-110); POTASSIUM 4.4 mmol/L (3.6-5.0)
[2020-06-28 14:44] LABS: APPEARANCE,URINE CLEAR; BILIRUBIN,URINE NEGATIVE (NEGATIVE); COLOR,URINE YELLOW; GLUCOSE, URINE NEGATIVE (NEGATIVE); KETONES,URINE NEGATIVE (NEGATIVE); LEUKOCYTE ESTERASE,URINE NEGATIVE (NEGATIVE); NITRITE,URINE NEGATIVE (NEGATIVE); PROTEIN,URINE 30 mg/dL (NEGATIVE); URINE SPECIFIC GRAVITY 1.035
[2020-06-28 15:14] LABS: URINE CREATININE 262.8 mg/dL (15-278); URINE PROTEIN 9.2 mg/dL (<12)
== END ==
LOC: OD 10:51
DX: B25.9 Cytomegaloviral disease, unspecified (principal); Z94.0 Kidney transplant status; Z94.83 Pancreas transplant status; Z51.81 Encounter for therapeutic drug level monitoring; Z79.899 Other long term (current) drug therapy; Z11.59 Encounter for screening for other viral diseases; Z11.4 Encounter for screening for human immunodeficiency virus [HIV]; Z20.828 Contact with and (suspected) exposure to other viral communicable diseases; Z20.6 Contact with and (suspected) exposure to human immunodeficiency virus [HIV]
CPT/HCPCS: 36415; 80048; 80197; 81001; 82150; 82570; 83690; 84156; 85025; 87496; 87799

== ENCOUNTER → 2020-07-05 | Outpatient (CLI) | payer MEDICARE, MEDICAID ==
[2020-07-05 10:17] LABS: ABSOLUTE LYMPHOCYTES (AUTO) 1.9 10^3/uL (0.5-4.7); ABSOLUTE MONOCYTES (AUTO) 0.5 10^3/uL (0.1-1.4); ABSOLUTE NEUT (AUTO) 3.5 10^3/uL (1.7-8.2); BASOPHILS % (AUTO) 0.1 % (0-2); EOSINOPHILS % (AUTO) 0.6 % (0-6); HEMATOCRIT 40.1 % (36.0-47.0); HEMOGLOBIN 12.9 g/dL (12.0-15.5); LYMPHOCYTES % (AUTO) 32.4 % (13-45); MEAN CORPUSCULAR HEMOGLOBIN 27.9 pg (27.0-33.4); MEAN CORPUSCULAR HGB CONC 32.3 g/dL (32.0-36.0); MEAN CORPUSCULAR VOLUME 86 fl (80-97); MONOCYTES % (AUTO) 7.8 % (3-13); PLATELET COUNT 159 10^3/uL (150-450); RED BLOOD COUNT 4.63 10^6/uL (3.72-5.28); RED CELL DISTRIBUTION WIDTH 13.8 % (11.5-14.0); SEGMENTED NEUTROPHILS % (AUTO) 59.1 % (42-78); TOTAL CELLS COUNTED % (AUTO) 100 %; WHITE BLOOD COUNT 5.9 10^3/uL (4.0-10.5)
[2020-07-05 10:21] LABS: APPEARANCE,URINE CLEAR; BILIRUBIN,URINE NEGATIVE (NEGATIVE); COLOR,URINE YELLOW; GLUCOSE, URINE NEGATIVE (NEGATIVE); KETONES,URINE NEGATIVE (NEGATIVE); LEUKOCYTE ESTERASE,URINE NEGATIVE (NEGATIVE); NITRITE,URINE NEGATIVE (NEGATIVE); PROTEIN,URINE NEGATIVE (NEGATIVE); URINE SPECIFIC GRAVITY 1.021; UROBILINOGEN,URINE NEGATIVE mg/dL (<2.0)
[2020-07-05 11:01] LABS: UR PRO/CREAT RATIO RESULT 0.1 mg/mg (0.0-0.2); URINE CREATININE 157.8 mg/dL (15-278); URINE PROTEIN 9.4 mg/dL (<12)
[2020-07-05 17:40] LABS: AMYLASE 79 U/L (30-110); ANION GAP 9 (5-19); BLOOD UREA NITROGEN 25 mg/dL (7-20); CARBON DIOXIDE 30 mmol/L (22-30); CHLORIDE 99 mmol/L (98-107); GLUCOSE 137 mg/dL (75-110); POTASSIUM 4.3 mmol/L (3.6-5.0)
== END ==
LOC: OD 09:08
PROVIDERS: ATTEND Student in an Organized Health Care Education/Training Program
DX: Z51.81 Encounter for therapeutic drug level monitoring (principal); B25.9 Cytomegaloviral disease, unspecified; Z94.0 Kidney transplant status; Z79.899 Other long term (current) drug therapy
CPT/HCPCS: 36415; 80048; 80197; 81001; 82150; 82570; 83690; 84156; 85025; 87496; 87799

== ENCOUNTER → 2020-07-12 | Outpatient (CLI) | payer MEDICARE, MEDICAID ==
[2020-07-12 11:25] LABS: ABSOLUTE MONOCYTES (AUTO) 0.4 10^3/uL (0.1-1.4); ABSOLUTE NEUT (AUTO) 2.1 10^3/uL (1.7-8.2); BASOPHILS % (AUTO) 0.2 % (0-2); EOSINOPHILS % (AUTO) 0.6 % (0-6); HEMATOCRIT 37.5 % (36.0-47.0); HEMOGLOBIN 12.2 g/dL (12.0-15.5); LYMPHOCYTES % (AUTO) 44.8 % (13-45); MEAN CORPUSCULAR HGB CONC 32.5 g/dL (32.0-36.0); MEAN CORPUSCULAR VOLUME 86 fl (80-97); PLATELET COUNT 150 10^3/uL (150-450); RED BLOOD COUNT 4.34 10^6/uL (3.72-5.28); RED CELL DISTRIBUTION WIDTH 14.1 % (11.5-14.0); SEGMENTED NEUTROPHILS % (AUTO) 46.4 % (42-78); TOTAL CELLS COUNTED % (AUTO) 100 %; WHITE BLOOD COUNT 4.5 10^3/uL (4.0-10.5)
[2020-07-12 11:27] LABS: APPEARANCE,URINE CLEAR; BILIRUBIN,URINE NEGATIVE (NEGATIVE); COLOR,URINE YELLOW; GLUCOSE, URINE NEGATIVE (NEGATIVE); KETONES,URINE NEGATIVE (NEGATIVE); LEUKOCYTE ESTERASE,URINE NEGATIVE (NEGATIVE); NITRITE,URINE NEGATIVE (NEGATIVE); PROTEIN,URINE NEGATIVE (NEGATIVE); URINE SPECIFIC GRAVITY 1.025; UROBILINOGEN,URINE NEGATIVE mg/dL (<2.0)
[2020-07-12 11:49] LABS: URINE CREATININE 222.6 mg/dL (15-278); URINE PROTEIN 7.3 mg/dL (<12)
[2020-07-12 11:57] LABS: AMYLASE 56 U/L (30-110); ANION GAP 8 (5-19); BLOOD UREA NITROGEN 26 mg/dL (7-20); CALCIUM 9.1 mg/dL (8.4-10.2); CARBON DIOXIDE 28 mmol/L (22-30); CHLORIDE 101 mmol/L (98-107); GLUCOSE 156 mg/dL (75-110); POTASSIUM 4.2 mmol/L (3.6-5.0)
== END ==
LOC: OD 10:12
PROVIDERS: ATTEND Student in an Organized Health Care Education/Training Program
DX: B25.9 Cytomegaloviral disease, unspecified (principal); Z94.0 Kidney transplant status; Z11.4 Encounter for screening for human immunodeficiency virus [HIV]; Z11.59 Encounter for screening for other viral diseases; Z20.828 Contact with and (suspected) exposure to other viral communicable diseases; Z20.6 Contact with and (suspected) exposure to human immunodeficiency virus [HIV]; N39.0 Urinary tract infection, site not specified; Z51.81 Encounter for therapeutic drug level monitoring; Z79.899 Other long term (current) drug therapy
CPT/HCPCS: 36415; 80048; 80197; 81001; 82150; 82570; 83690; 84156; 85025; 87496; 87799

== ENCOUNTER → 2020-07-19 | Outpatient (CLI) | payer MEDICARE, MEDICAID ==
[2020-07-19 12:23] LABS: ABSOLUTE LYMPHOCYTES (AUTO) 1.9 10^3/uL (0.5-4.7); ABSOLUTE MONOCYTES (AUTO) 0.4 10^3/uL (0.1-1.4); ABSOLUTE NEUT (AUTO) 2.1 10^3/uL (1.7-8.2); BASOPHILS % (AUTO) 0.3 % (0-2); EOSINOPHILS % (AUTO) 0.7 % (0-6); HEMATOCRIT 38.6 % (36.0-47.0); HEMOGLOBIN 12.4 g/dL (12.0-15.5); LYMPHOCYTES % (AUTO) 42.3 % (13-45); MEAN CORPUSCULAR HEMOGLOBIN 28.2 pg (27.0-33.4); MEAN CORPUSCULAR HGB CONC 32.2 g/dL (32.0-36.0); MEAN CORPUSCULAR VOLUME 88 fl (80-97); MONOCYTES % (AUTO) 8.9 % (3-13); PLATELET COUNT 161 10^3/uL (150-450); RED BLOOD COUNT 4.41 10^6/uL (3.72-5.28); RED CELL DISTRIBUTION WIDTH 14.3 % (11.5-14.0); SEGMENTED NEUTROPHILS % (AUTO) 47.8 % (42-78); TOTAL CELLS COUNTED % (AUTO) 100 %; WHITE BLOOD COUNT 4.4 10^3/uL (4.0-10.5)
[2020-07-19 12:23] LABS: APPEARANCE,URINE CLEAR; BILIRUBIN,URINE NEGATIVE (NEGATIVE); COLOR,URINE YELLOW; GLUCOSE, URINE NEGATIVE (NEGATIVE); KETONES,URINE NEGATIVE (NEGATIVE); LEUKOCYTE ESTERASE,URINE NEGATIVE (NEGATIVE); NITRITE,URINE NEGATIVE (NEGATIVE); PROTEIN,URINE NEGATIVE (NEGATIVE); URINE SPECIFIC GRAVITY 1.025; UROBILINOGEN,URINE NEGATIVE mg/dL (<2.0)
[2020-07-19 12:49] LABS: URINE CREATININE 204.4 mg/dL (15-278); URINE PROTEIN 7.6 mg/dL (<12)
[2020-07-19 12:52] LABS: ANION GAP 6 (5-19); BLOOD UREA NITROGEN 24 mg/dL (7-20); CALCIUM 9.3 mg/dL (8.4-10.2); CARBON DIOXIDE 27 mmol/L (22-30); CHLORIDE 104 mmol/L (98-107); GLUCOSE 156 mg/dL (75-110); POTASSIUM 4.5 mmol/L (3.6-5.0)
== END ==
LOC: OD 10:56
PROVIDERS: ATTEND Student in an Organized Health Care Education/Training Program
DX: Z51.81 Encounter for therapeutic drug level monitoring (principal); Z94.0 Kidney transplant status; Z79.899 Other long term (current) drug therapy; B25.9 Cytomegaloviral disease, unspecified
CPT/HCPCS: 36415; 80048; 80197; 81001; 82150; 82570; 83690; 84156; 85025; 87496; 87799

== ENCOUNTER → 2020-09-06 | Outpatient (CLI) | payer MEDICARE, MEDICAID ==
[2020-09-06 11:30] LABS: APPEARANCE,URINE CLEAR; BILIRUBIN,URINE NEGATIVE (NEGATIVE); COLOR,URINE YELLOW; GLUCOSE, URINE NEGATIVE (NEGATIVE); KETONES,URINE NEGATIVE (NEGATIVE); LEUKOCYTE ESTERASE,URINE NEGATIVE (NEGATIVE); NITRITE,URINE NEGATIVE (NEGATIVE); PROTEIN,URINE NEGATIVE (NEGATIVE); URINE SPECIFIC GRAVITY 1.024; UROBILINOGEN,URINE NEGATIVE mg/dL (<2.0)
[2020-09-06 11:32] LABS: ABSOLUTE LYMPHOCYTES (AUTO) 0.9 10^3/uL (0.5-4.7); ABSOLUTE MONOCYTES (AUTO) 0.3 10^3/uL (0.1-1.4); ABSOLUTE NEUT (AUTO) 1.2 10^3/uL (1.7-8.2); BASOPHILS % (AUTO) 0.3 % (0-2); HEMATOCRIT 39.8 % (36.0-47.0); HEMOGLOBIN 12.5 g/dL (12.0-15.5); LYMPHOCYTES % (AUTO) 35.9 % (13-45); MEAN CORPUSCULAR HEMOGLOBIN 27.5 pg (27.0-33.4); MEAN CORPUSCULAR HGB CONC 31.5 g/dL (32.0-36.0); MEAN CORPUSCULAR VOLUME 87 fl (80-97); MONOCYTES % (AUTO) 13.8 % (3-13); PLATELET COUNT 150 10^3/uL (150-450); RED BLOOD COUNT 4.55 10^6/uL (3.72-5.28); TOTAL CELLS COUNTED % (AUTO) 100 %; WHITE BLOOD COUNT 2.5 10^3/uL (4.0-10.5)
[2020-09-06 11:56] LABS: AMYLASE 47 U/L (30-110); BLOOD UREA NITROGEN 24 mg/dL (7-20); CALCIUM 9.8 mg/dL (8.4-10.2); GLUCOSE 171 mg/dL (75-110); POTASSIUM 4.8 mmol/L (3.6-5.0)
[2020-09-06 12:02] LABS: CARBON DIOXIDE 32 mmol/L (22-30); CHLORIDE 100 mmol/L (98-107)
[2020-09-06 12:06] LABS: ANION GAP 4 (5-19)
[2020-09-06 14:11] LABS: URINE CREATININE 169.6 mg/dL (15-278); URINE PROTEIN 7.5 mg/dL (<12)
== END ==
LOC: OD 10:20
PROVIDERS: ATTEND Student in an Organized Health Care Education/Training Program
DX: B25.9 Cytomegaloviral disease, unspecified (principal); I10 Essential (primary) hypertension; N39.0 Urinary tract infection, site not specified; Z94.0 Kidney transplant status; Z51.81 Encounter for therapeutic drug level monitoring; Z79.899 Other long term (current) drug therapy
CPT/HCPCS: 36415; 80048; 80197; 81001; 82150; 82570; 83690; 84156; 85025; 87496; 87799

== ENCOUNTER → 2020-09-27 | Outpatient (CLI) | payer MEDICARE, MEDICAID ==
[2020-09-27 11:51] LABS: HEMATOCRIT 36.5 % (36.0-47.0); MEAN CORPUSCULAR HGB CONC 32.9 g/dL (32.0-36.0); MEAN CORPUSCULAR VOLUME 85 fl (80-97); PLATELET COUNT 158 10^3/uL (150-450); RED BLOOD COUNT 4.29 10^6/uL (3.72-5.28); RED CELL DISTRIBUTION WIDTH 13.8 % (11.5-14.0); WHITE BLOOD COUNT 2.9 10^3/uL (4.0-10.5)
[2020-09-27 12:10] LABS: AMYLASE 50 U/L (30-110); ANION GAP 5 (5-19); BLOOD UREA NITROGEN 20 mg/dL (7-20); CALCIUM 9.3 mg/dL (8.4-10.2); CARBON DIOXIDE 32 mmol/L (22-30); CHLORIDE 101 mmol/L (98-107); GLUCOSE 194 mg/dL (75-110); POTASSIUM 4.9 mmol/L (3.6-5.0)
[2020-09-27 12:14] LABS: APPEARANCE,URINE SLIGHTLY-CLOUDY; BILIRUBIN,URINE NEGATIVE (NEGATIVE); COLOR,URINE YELLOW; GLUCOSE, URINE 50 mg/dL (NEGATIVE); KETONES,URINE NEGATIVE (NEGATIVE); LEUKOCYTE ESTERASE,URINE NEGATIVE (NEGATIVE); NITRITE,URINE NEGATIVE (NEGATIVE); PROTEIN,URINE 30 mg/dL (NEGATIVE)
[2020-09-27 12:32] LABS: ABSOLUTE MONOCYTES # (MANUAL) 0.6 10^3/uL (0.1-1.4); BASOPHILS % (MANUAL) 0 % (0-2); EOSINOPHILS % (MANUAL) 1 % (0-6); HYPOCHROMASIA SLIGHT; LYMPHOCYTES % (MANUAL) 36 % (13-45); MONOCYTES % (MANUAL) 19 % (3-13); NUCLEATED RED BLOOD CELLS 1 /100 WBC (0); PLATELET COMMENT ADEQUATE; PLATELET LARGE PRESENT; SEGMENTED NEUTROPHILS % (MAN) 44 % (42-78); TOTAL CELLS COUNTED 100
[2020-09-27 12:33] LABS: POLYCHROMASIA SLIGHT
[2020-09-27 12:35] LABS: URINE PROTEIN 7.8 mg/dL (<12)
[2020-09-27 12:47] LABS: URINE CREATININE 356.7 mg/dL (15-278)
== END ==
LOC: OD 10:34
PROVIDERS: ATTEND Student in an Organized Health Care Education/Training Program
DX: Z94.0 Kidney transplant status (principal); Z51.81 Encounter for therapeutic drug level monitoring; Z79.899 Other long term (current) drug therapy; B25.9 Cytomegaloviral disease, unspecified
CPT/HCPCS: 36415; 80048; 80197; 81001; 82150; 82570; 83690; 84156; 85025; 87496; 87799

== ENCOUNTER 2020-10-03 17:32 | Emergency (ER) | payer MEDICARE, MEDICAID ==
[2020-10-03 18:44] LABS: ABSOLUTE LYMPHOCYTES (AUTO) 0.6 10^3/uL (0.5-4.7); ABSOLUTE MONOCYTES (AUTO) 0.3 10^3/uL (0.1-1.4); ABSOLUTE NEUT (AUTO) 1.6 10^3/uL (1.7-8.2); BASOPHILS % (AUTO) 0.4 % (0-2); HEMATOCRIT 42.3 % (36.0-47.0); HEMOGLOBIN 13.5 g/dL (12.0-15.5); LYMPHOCYTES % (AUTO) 23.4 % (13-45); MEAN CORPUSCULAR HEMOGLOBIN 27.3 pg (27.0-33.4); MEAN CORPUSCULAR VOLUME 85 fl (80-97); MONOCYTES % (AUTO) 10.4 % (3-13); PLATELET COUNT 142 10^3/uL (150-450); RED BLOOD COUNT 4.96 10^6/uL (3.72-5.28); RED CELL DISTRIBUTION WIDTH 13.2 % (11.5-14.0); SEGMENTED NEUTROPHILS % (AUTO) 65.8 % (42-78); TOTAL CELLS COUNTED % (AUTO) 100 %; WHITE BLOOD COUNT 2.4 10^3/uL (4.0-10.5)
[2020-10-03 18:58] LABS: APPEARANCE,URINE SLIGHTLY-CLOUDY; BILIRUBIN,URINE NEGATIVE (NEGATIVE); COLOR,URINE YELLOW; GLUCOSE, URINE >=500 mg/dL (NEGATIVE); KETONES,URINE NEGATIVE (NEGATIVE); LEUKOCYTE ESTERASE,URINE NEGATIVE (NEGATIVE); NITRITE,URINE NEGATIVE (NEGATIVE); PROTEIN,URINE 30 mg/dL (NEGATIVE); URINE SPECIFIC GRAVITY 1.029
[2020-10-03 19:03] LABS: ALBUMIN 4.3 g/dL (3.5-5.0); ALKALINE PHOSPHATASE 56 U/L (38-126); ANION GAP 8 (5-19); ASPARTATE AMINO TRANSFERASE 46 U/L (14-36); BILIRUBIN,DIRECT 0.3 mg/dL (0.0-0.4); BILIRUBIN,TOTAL 0.7 mg/dL (0.2-1.3); BLOOD UREA NITROGEN 18 mg/dL (7-20); CALCIUM 9.3 mg/dL (8.4-10.2); CARBON DIOXIDE 27 mmol/L (22-30); CHLORIDE 101 mmol/L (98-107); GLUCOSE 250 mg/dL (75-110); POTASSIUM 4.8 mmol/L (3.6-5.0); TOTAL PROTEIN 7.5 g/dL (6.3-8.2)
--- NOTE | 2020-10-03 20:20 | ER Document Report ---
ED Medical Screen (RME) - General Chief Complaint: Low Back Pain Stated Complaint: LOW BACK,BODY PAIN Time Seen by Provider: 10/03/20 20:00 Primary Care Provider: NIMA MORRISON MD [Primary Care Provider] - Follow up as needed TRAVEL OUTSIDE OF THE [place] IN LAST 30 DAYS: No - HPI Notes: 10/03/20 20:37 50-year-old female with a history of kidney and pancreatic transplant done 4 years ago (due to uncontrolled diabetes required dialysis and these transplants resolved both of these issues) presents to the emergency department for complaints of body pain and lower back pain that started 2 weeks ago. Patient follows with [facility], due to her having recent labs that showed neutropenia, they advised her to come to the emergency room. Patient is currently on immunosuppressive medications, the [facility] transplant team did report the transplant 2016. Patient states she has had lower back pain and body pain for the last 2 weeks. She is concerned that her lipase may be elevated and this is what [facility] advised her to come get checked out in the emergency room today. Patient states she is having body pain which is 3 out of 5, is requesting Tylenol. States she did take Tylenol prior to coming to the emergency room. Denies any nausea, vomiting, diarrhea. Denies any chest pain or shortness of breath. I have greeted and performed a rapid initial assessment of this patient. A comprehensive ED assessment and evaluation of the patient, analysis of test res ults and completion of the medical decision making process will be conducted by additional ED providers. PHYSICAL EXAMINATION: GENERAL: Well-appearing, well-nourished and in no acute distress. CV: s1, s2 regular LUNGS: No respiratory distress abd: No abdominal pain on palpation throughout, no CVA tenderness appreciated Musculoskeletal: Normal range of motion NEUROLOGICAL: Normal speech, normal gait. SKIN: Warm, Dry, normal turgor, no rashes or lesions noted. The patient was evaluated during a global COVID-19 pandemic and that diagnosis was suspected/considered upon their initial presentation. Their evaluation, treatment and testing was consistent with current guidelines for patients who present with complaints or symptoms and may be related to COVID-19. - Related Data Allergies/Adverse Reactions: propoxyphene napsylate [From Darvocet-N 100] Allergy (Severe, Verified 02/11/16 09:00) n and v,dizziness,coughing tuberculin, purified protein deriva [Tuberculin,Purif.Prot.Deriv.] Allergy (Severe, Verified 02/11/16 09:00) PPD CONVERTER sulfamethoxazole [From Bactrim] Allergy (Verified 01/01/19 18:59) tacrolimus [From Envarsus XR] Allergy (Verified 10/03/20 18:15) trimethoprim [From Bactrim] Allergy (Verified 01/01/19 18:59) hydrocodone bitartrate [From Vicodin] Adverse Reaction (Unknown, Verified 02/11/16 09:00) Nausea oxycodone HCl [From Percocet] Adverse Reaction (Unknown, Verified 02/11/16 09:00) Nausea Home Medications: atrovastatin. prednisone. sulfamethroxazole0-trimethoprim. tacrolimus. mycophenolate. famotidine. ondansetron. lispro. sliding scale. latanoprost. cholecalciferol. magnesium oxide. brimonidine-timolol. asa Past Medical History - Social History Chew tobacco use (# tins/day): No Frequency of alcohol use: None Drug Abuse: None - Past Medical History Cardiac Medical History: Reports: Hx Hypertension - on meds Denies: Hx Coronary Artery Disease, Hx Heart Attack Pulmonary Medical History: Reports: Hx Tuberculosis - EXPOSURE AT WORK AND TREATED Denies: Hx Asthma, Hx Bronchitis, Hx COPD, Hx Pneumonia Neurological Medical History: Denies: Hx Cerebrovascular Accident, Hx Seizures Endocrine Medical History: Reports: Hx Diabetes Mellitus Type 1 Renal/ Medical History: Reports: Hx End Stage Renal Disease - had kidney transplant, Hx Kidney Stones. Denies: Hx Peritoneal Dialysis GI Medical History: Musculoskeltal Medical History: Reports Hx Arthritis Psychiatric Medical History: Denies: Hx Depression Infectious Medical History: Past Surgical History: Reports: Hx Hysterectomy, Hx Kidney (Renal Surgery) - kidney transplant, Hx Pancreatic Surgery - pancreas transplant, Hx Tubal Ligation, Other - Renal and pancreatic transplant. Denies: Hx Appendectomy, Hx Bowel Surgery, Hx Section, Hx Cholecystectomy, Hx Mastectomy, Hx Open Heart Surgery, Hx Tonsillectomy - Immunizations Hx Diphtheria, Pertussis, Tetanus Vaccination: Yes Physical Exam - Vital signs Vitals: Temp Pulse Resp BP Pulse Ox 98.4 F 100 16 171/87 H 96 10/03/20 17:40 10/03/20 17:40 10/03/20 17:40 10/03/20 17:40 10/03/20 17:40 Course - Vital Signs Vital signs: Temp Pulse Resp BP Pulse Ox 98.4 F 100 16 171/87 H 96 10/03/20 17:40 10/03/20 17:40 10/03/20 17:40 10/03/20 17:40 10/03/20 17:40 - Laboratory Results Result Diagrams: 10/03/20 18:06 10/03/20 18:06 Laboratory Results Interpreted: 10/03/20 10/03/20 10/03/20 18:00 18:06 18:06 WBC 2.4 L Plt Count 142 L Absolute Neuts (auto) 1.6 L Sodium 136.4 L Glucose 250 H AST 46 H Urine Protein 30 H Urine Glucose (UA) >=500 H Urine Urobilinogen 2.0 H Doctor's Discharge - Discharge Referrals: NIMA MORRISON MD [Primary Care Provider] - Follow up as needed
[2020-10-03] MEDS ORDERED: ACETAMINOPHEN 325 MG TABLET PO ONE (20:35)
--- NOTE | 2020-10-03 23:11 | ER Document Report ---
ED General - General Chief Complaint: Low Back Pain Stated Complaint: LOW BACK,BODY PAIN Time Seen by Provider: 10/03/20 20:00 Primary Care Provider: NIMA MORRISON MD [Primary Care Provider] - Follow up as needed TRAVEL OUTSIDE OF THE [place] IN LAST 30 DAYS: No - HPI Notes: 50-year-old female presents with body aches ongoing for the past 1 month. Patient states that she is having pain in her lower back, bilateral hips, premature her entire body including her boobs and her nipples. She states that for the past week the body aches have seemed to be worsening. Starting on Friday, 4 days ago she began feeling fatigued and just wanting to stay in bed and to be lazy. Patient has a history of pancreas and kidney transplant performed 4 years ago at [place]. Patient states that she receives monthly blood work. States that she had turned positive for CMV and she knows that the CMV number was going up. She also states that she has had neutropenia on her recent lab checks. She is also recently had her prednisone decreased. Patient states that she called her medical services coordinator and was advised to go to the emergency department for evaluation, states that she did not want to drive to [place] today therefore came here. Patient denies fever, chills, chest pain, coug h, shortness of breath, abdominal pain, nausea/vomiting/diarrhea, or dysuria. She reports that Tylenol relieves her symptoms. Her last Covid test was about 2 months ago. - Related Data Allergies/Adverse Reactions: propoxyphene napsylate [From Darvocet-N 100] Allergy (Severe, Verified 02/11/16 09:00) n and v,dizziness,coughing tuberculin, purified protein deriva [Tuberculin,Purif.Prot.Deriv.] Allergy (Severe, Verified 02/11/16 09:00) PPD CONVERTER sulfamethoxazole [From Bactrim] Allergy (Verified 01/01/19 18:59) tacrolimus [From Envarsus XR] Allergy (Verified 10/03/20 18:15) trimethoprim [From Bactrim] Allergy (Verified 01/01/19 18:59) hydrocodone bitartrate [From Vicodin] Adverse Reaction (Unknown, Verified 02/11/16 09:00) Nausea oxycodone HCl [From Percocet] Adverse Reaction (Unknown, Verified 02/11/16 09:00) Nausea Home Medications: atrovastatin. prednisone. sulfamethroxazole0-trimethoprim. tacrolimus. mycophenolate. famotidine. ondansetron. lispro. sliding scale. latanoprost. cholecalciferol. magnesium oxide. brimonidine-timolol. asa Past Medical History - General Information source: Patient - Social History Smoking Status: Never Smoker Chew tobacco use (# tins/day): No Frequency of alcohol use: None Drug Abuse: None Family History: Reviewed & Not Pertinent Patient has homicidal ideation: No - Past Medical History Cardiac Medical History: Reports: Hx Hypertension - on meds Denies: Hx Coronary Artery Disease, Hx Heart Attack Pulmonary Medical History: Reports: Hx Tuberculosis - EXPOSURE AT WORK AND TREATED Denies: Hx Asthma, Hx Bronchitis, Hx COPD, Hx Pneumonia Neurological Medical History: Denies: Hx Cerebrovascular Accident, Hx Seizures Endocrine Medical History: Reports: Hx Diabetes Mellitus Type 1 Renal/ Medical History: Reports: Hx End Stage Renal Disease - had kidney transplant, Hx Kidney Stones. Denies: Hx Peritoneal Dialysis GI Medical History: Musculoskeletal Medical History: Reports Hx Arthritis Psychiatric Medical History: Denies: Hx Depression Infectious Medical History: Past Surgical History: Reports: Hx Hysterectomy, Hx Kidney (Renal Surgery) - kidney transplant, Hx Pancreatic Surgery - pancreas transplant, Hx Tubal Ligation, Other - Renal and pancreatic transplant. Denies: Hx Appendectomy, Hx Bowel Surgery, Hx Section, Hx Cholecystectomy, Hx Mastectomy, Hx Open Heart Surgery, Hx Tonsillectomy - Immunizations Hx Diphtheria, Pertussis, Tetanus Vaccination: Yes Review of Systems - Review of Systems Constitutional: denies: Chills, Fever EENT: No symptoms reported Cardiovascular: denies: Chest pain Respiratory: denies: Short of breath Gastrointestinal: No symptoms reported Genitourinary: denies: Dysuria Female Genitourinary: No symptoms reported Musculoskeletal: Muscle pain Skin: No symptoms reported Hematologic/Lymphatic: No symptoms reported Neurological/Psychological: No symptoms reported Physical Exam - Vital signs Vitals: Temp Pulse Resp BP Pulse Ox 98.4 F 100 16 171/87 H 96 10/03/20 17:40 10/03/20 17:40 10/03/20 17:40 10/03/20 17:40 10/03/20 17:40 - General General appearance: Appears well, Alert In distress: None - HEENT Head: Normocephalic, Atraumatic Extraocular movements intact: Yes Pupils: PERRL Neck: Supple - Respiratory Breath sounds: Normal - Cardiovascular Rhythm: Regular Heart sounds: Normal auscultation - Abdominal Inspection: Obese Distension: No distension Tenderness: Nontender - Back Back: Nontender. No: CVA tenderness, Vertebra tenderness - Extremities General upper extremity: Normal ROM General lower extremity: Normal ROM. No: Edema - Neurological Neuro grossly intact: Yes Cognition: Normal Orientation: AAOx4 - Psychological Associated symptoms: Normal affect - Skin Skin Temperature: Warm Course - Re-evaluation Re-evalutation: 50-year-old female history pancreas/kidney transplant 4 years ago on immunosuppressive therapy here for generalized body aches x1 month, possibly worsening within the past week along with some fatigue. On exam patient is afebrile, hemodynamically stable, nontoxic-appearing. Lungs are clear, heart RRR, abdomen is soft, I do not find any discrete areas of tenderness on exam in addition to no midline spinal tenderness. She is neurologically intact. She had a laboratory evaluation done prior to evaluation. Leukopenia/neutropenia, this has been seen on the past 2 lab draws since August. No acute anemia. Electrolytes within normal limits. Creatinine within normal limits. No marked transaminitis. No elevation of CK. Lipase within normal limits. Urine does not suggest UTI. I discussed with her her overall reassuring laboratory evaluation. I discussed that potentially this is due to the decreased prednisone amount she is taking, possibly related to CMV, and of course given the pandemic possible she could have Covid, she was agreeable to testing. I encouraged her to have very close follow-up with her transplant team. Return precautions given, stable at time of discharge. - Vital Signs Vital signs: Temp Pulse Resp BP Pulse Ox 98.9 F 100 24 H 110/72 94 10/03/20 23:18 10/03/20 17:40 10/03/20 23:18 10/03/20 23:18 10/03/20 23:18 - Laboratory Results Result Diagrams: 10/03/20 18:06 10/03/20 18:06 Laboratory Results Interpreted: 10/03/20 10/03/20 10/03/20 18:00 18:06 18:06 WBC 2.4 L Plt Count 142 L Absolute Neuts (auto) 1.6 L Sodium 136.4 L Glucose 250 H AST 46 H Urine Protein 30 H Urine Glucose (UA) >=500 H Urine Urobilinogen 2.0 H Critical Laboratory Results Reviewed: No Critical Results - Radiology Results Critical Radiology Results Reviewed: No Critical Results Discharge - Discharge Clinical Impression: Generalized body aches, Person under investigation for COVID-19 Neutropenia Qualifiers: Neutropenia type: other drug-induced Qualified Code(s): 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 He should receive results from Covid swab in about 2 to 3 days. Please return to the emergency department for any concerning worsening symptoms. Referrals: NIAM MORRISON MD [Primary Care Provider] - Follow up as needed
[2020-10-03 23:29] VITALS: BP 110/72
== END 2020-10-03 23:29 | disposition home or self-care (01) ==
LOC: ER 17:32
DX: D70.2 Other drug-induced agranulocytosis (principal); M79.10 Myalgia, unspecified site; M54.5 Low back pain; M25.551 Pain in right hip; M25.552 Pain in left hip; Z79.899 Other long term (current) drug therapy; Z88.8 Allergy status to other drugs, medicaments and biological substances; Z88.2 Allergy status to sulfonamides; Z79.82 Long term (current) use of aspirin; I10 Essential (primary) hypertension; E10.9 Type 1 diabetes mellitus without complications; Z20.828 Contact with and (suspected) exposure to other viral communicable diseases
CPT/HCPCS: 99283; 36415; 87086; 82550; 83690; 85025; 80053; 81001; U0003; A9270; C9803; 87635